=== PATIENT | female | born 1960 | race African-American/Black ===

== ENCOUNTER → 2020-09-01 | Outpatient (CLI) | payer MEDICARE, MEDICAID ==
[~2020-09-01] MED LIST: ACET-2708 PO; AMLO10TA80 PO; ASPI-1406 PO; B50 PO; BIOT1TAB8 PO; BISA-81 PO; CINA30 PO; DOCU-138 PO; FERR210T PO; FURO40TA5 PO; GARL600T2 PO; HYDR-4134 PO; HYDR-4135 PO; IRBE300T17 PO; LOSA50TA41 PO; SEVE800T8 PO
== END | disposition home or self-care (01) ==
LOC: LAB 13:32
PROVIDERS: ATTEND Surgery Vascular Surgery
DX: Z01.812 Encounter for preprocedural laboratory examination (principal); Z20.822 Contact with and (suspected) exposure to COVID-19
CPT/HCPCS: 87426

== ENCOUNTER → 2020-09-04 | Day surgery (SDC) | payer MEDICARE, MEDICAID ==
[~2020-09-04] VITALS: Ht 170.2 cm; Wt 102.5 kg
[~2020-09-04] MED LIST changes: +BACITRACIN 15GM TUBE TOP ONE; +BUPIVACAINE HCL/PF 0.5% (5MG/ML) 10ML ONE; +DEXAMETHASONE 4MG/ML 1ML VIAL ONE; +FENTANYL CITRATE/PF 50MCG/ML 2ML VIAL ONE; +HEPARIN SODIUM 1,000 UNIT/1ML VIAL IV ONE; +HYDROMORPHONE HCL/PF 2MG/ML CPJ IV PRN; +IBUPROFEN 400MG TABLET PO NR; +LIDOCAINE HCL 1% 20ML VIAL (Pyxis) INJ ONE; +LIDOCAINE HCL/EPINEPHRINE 1%-EPI 1:100,000 20 ML VIAL ONE; +MEPERIDINE HCL/PF 25MG/ML CPJ IV PRN; +METOCLOPRAMIDE HCL 10MG/2ML VIAL ONE; +MIDAZOLAM HCL 2 MG/2 ML VIAL ONE; +MORPHINE SULFATE 2 MG/ML CPJ (NOT FOR IM USE) IV PRN; +ONDANSETRON HCL 4MG/2ML INJ IV PRN; +ONDANSETRON HCL 4MG/2ML INJ ONE; +POLYMYXIN B SULFATE 500000 UNITS/VIAL ONE; +PROPOFOL 200MG/20ML VIAL IV ONE; +SODIUM CHLORIDE 0.9% 1,000 ML IV ONE; +SODIUM CHLORIDE 0.9% 500 ML IV ONE; +THROMBIN (BOVINE) 5000 UNITS/VIAL TOP ONE
[2020-09-04 06:45] LABS: BASOPHILS % 0.8 % (0.0-2.0); EOSINOPHILS % 3.7 % (0.0-5.0); HEMATOCRIT. 34.7 % (36.0-48.0); HEMOGLOBIN. 10.9 g/dL (12.0-16.0); LYMPHOCYTES % 21.5 % (20.0-50.0); MEAN CORPUSCULAR HEMOGLOBIN 28.5 pg (28.0-32.0); MEAN CORPUSCULAR VOLUME 90.6 fL (81.0-99.0); MONOCYTES % 8.7 % (2.0-8.0); NEUTROPHILS % 65.3 % (40.0-76.0); PLATELET 285 x1000/uL (130-400); RED BLOOD CELL COUNT 3.83 mill/uL (4.2-5.4); RED CELL DISTRIBUTION WIDTH 15.2 % (11.6-14.6)
[2020-09-04 07:06] LABS: INR 1.1; PROTHROMBIN TIME 11.6 sec (9.6-11.0)
[2020-09-04 10:32] VITALS: BP 146/78
== END | disposition home or self-care (01) ==
LOC: OR 05:54
PROVIDERS: ATTEND Surgery Vascular Surgery
DX: I77.0 Arteriovenous fistula, acquired (principal); E66.01 Morbid (severe) obesity due to excess calories; I12.0 Hypertensive chronic kidney disease with stage 5 chronic kidney disease or end stage renal disease; N18.6 End stage renal disease; E11.22 Type 2 diabetes mellitus with diabetic chronic kidney disease; Z79.82 Long term (current) use of aspirin; Z79.84 Long term (current) use of oral hypoglycemic drugs; Z79.899 Other long term (current) drug therapy; Z98.890 Other specified postprocedural states
CPT/HCPCS: 36415; 36818; 80048; 85025; 85610; 85730; 93005; J1100; J1644; J2250; J2405; J2704; J2765; J3010; J3490; J7040; A4565

== ENCOUNTER 2021-01-23 16:04 | Inpatient (IN) | payer MEDICARE, OTHER ==
[~2021-01-23] VITALS: Ht 170.2 cm; Wt 103.9 kg
[~2021-01-23 16:04] MED LIST changes: -ASPI-1406 PO; -B50 PO; -BACITRACIN 15GM TUBE TOP ONE; -BIOT1TAB8 PO; -BUPIVACAINE HCL/PF 0.5% (5MG/ML) 10ML ONE; -CINA30 PO; -DEXAMETHASONE 4MG/ML 1ML VIAL ONE; -DOCU-138 PO; -FENTANYL CITRATE/PF 50MCG/ML 2ML VIAL ONE; -GARL600T2 PO; -HEPARIN SODIUM 1,000 UNIT/1ML VIAL IV ONE; -HYDR-4134 PO; -HYDROMORPHONE HCL/PF 2MG/ML CPJ IV PRN; -IBUPROFEN 400MG TABLET PO NR; -LIDOCAINE HCL 1% 20ML VIAL (Pyxis) INJ ONE; -LIDOCAINE HCL/EPINEPHRINE 1%-EPI 1:100,000 20 ML VIAL ONE; -LOSA50TA41 PO; -MEPERIDINE HCL/PF 25MG/ML CPJ IV PRN; -METOCLOPRAMIDE HCL 10MG/2ML VIAL ONE; -MIDAZOLAM HCL 2 MG/2 ML VIAL ONE; -MORPHINE SULFATE 2 MG/ML CPJ (NOT FOR IM USE) IV PRN; -ONDANSETRON HCL 4MG/2ML INJ IV PRN; -ONDANSETRON HCL 4MG/2ML INJ ONE; -POLYMYXIN B SULFATE 500000 UNITS/VIAL ONE; -PROPOFOL 200MG/20ML VIAL IV ONE; -SEVE800T8 PO; -SODIUM CHLORIDE 0.9% 1,000 ML IV ONE; -SODIUM CHLORIDE 0.9% 500 ML IV ONE; -THROMBIN (BOVINE) 5000 UNITS/VIAL TOP ONE
[2021-01-23] MEDS ORDERED: SODIUM CHLORIDE 0.9% 500 ML IV ONE ×2 (16:45→17:30)
[2021-01-23] MEDS ORDERED: ACETAMINOPHEN 325MG TABLET PO ONE (16:45)
[2021-01-23 17:02] LABS: BASOPHILS % 0.7 % (0.0-2.0); HEMATOCRIT. 31.3 % (36.0-48.0); HEMOGLOBIN. 9.9 g/dL (12.0-16.0); LYMPHOCYTES % 10.3 % (20.0-50.0); MEAN CORPUSCULAR HEMOGLOBIN 29.3 pg (28.0-32.0); MEAN CORPUSCULAR VOLUME 92.9 fL (81.0-99.0); MEAN PLATELET VOLUME 8.9 fl (7.4-10.4); MONOCYTES % 4.5 % (2.0-8.0); NEUTROPHILS % 83.5 % (40.0-76.0); PLATELET 448 x1000/uL (130-400); RED BLOOD CELL COUNT 3.37 mill/uL (4.2-5.4); RED CELL DISTRIBUTION WIDTH 15.7 % (11.6-14.6)
[2021-01-23 17:08] LABS: CHLORIDE 100 mEq/L (98-107)
[2021-01-23] MEDS ORDERED: ASPIRIN 325MG EC TABLET PO ONE (18:45)
[2021-01-23] MEDS ORDERED: SODIUM CHLORIDE 0.9% 100 ML IV ONE (19:00)
[2021-01-23] MEDS ORDERED: CALCIUM GLUCONATE 100MG/ML 10ML VIAL IV ONE (19:00)
[2021-01-23] MEDS: AMLODIPINE 10MG TABLET PO SCH (22:30)
[2021-01-23] MEDS ORDERED: GUAIFENESIN 200MG/10ML SUGAR FREE UDC PO PRN (22:30)
[2021-01-23] MEDS ORDERED: CLONIDINE 0.1MG TABLET PO PRN (22:30)
[2021-01-23] MEDS ORDERED: ACETAMINOPHEN 650MG/20.3ML UDC GT PRN (22:30)
[2021-01-23] MEDS ORDERED: MAGNESIUM/ALUMINUM HYDROXIDE/SIMETHICONE 30ML UDC PO PRN (22:30)
[2021-01-24 05:31] VITALS: BP 162/66
[2021-01-24 08:00] VITALS: BP 116/95
[2021-01-24] MEDS: AMLODIPINE 10MG TABLET PO SCH (10:09)
[2021-01-24] MEDS: PANTOPRAZOLE SODIUM 40 MG/VIAL IV SCH (10:09)
[2021-01-24] MEDS: DIPHENHYDRAMINE 50MG/ML VIAL IV PRN (11:26)
[2021-01-24 12:00] VITALS: BP 148/55
[2021-01-24] MEDS ORDERED: HEPARIN SODIUM 1,000 UNIT/1ML VIAL IV NR ×2 (12:30→12:45)
[2021-01-24] MEDS ORDERED: DEXTROSE 50% WATER 50ML SYRINGE IV PRN (12:45)
[2021-01-24] MEDS: BLOOD SUGAR DIAGNOSTIC STRIP TEST SCH ×3 (12:50→20:48)
[2021-01-24] MEDS: INSULIN LISPRO 100 UNITS/ML SUBCUT SCH ×3 (12:51→20:49)
[2021-01-24 13:12] LABS: BASOPHILS % 0.9 % (0.0-2.0); EOSINOPHILS % 0.6 % (0.0-5.0); HEMATOCRIT. 28.2 % (36.0-48.0); HEMOGLOBIN. 9.1 g/dL (12.0-16.0); MEAN CORPUSCULAR HEMOGLOBIN 29.5 pg (28.0-32.0); MEAN CORPUSCULAR VOLUME 91.7 fL (81.0-99.0); MEAN PLATELET VOLUME 9.2 fl (7.4-10.4); MONOCYTES % 6.7 % (2.0-8.0); NEUTROPHILS % 83.8 % (40.0-76.0); PLATELET 401 x1000/uL (130-400); RED BLOOD CELL COUNT 3.08 mill/uL (4.2-5.4); RED CELL DISTRIBUTION WIDTH 15.7 % (11.6-14.6)
[2021-01-24] MEDS ORDERED: REGADENOSON 0.4 MG/5 ML IV NR (13:15)
[2021-01-24 13:17] LABS: CHLORIDE 101 mEq/L (98-107)
[2021-01-24 16:00] VITALS: BP 143/67
[2021-01-24] MEDS: ACETAMINOPHEN 325MG TABLET PO PRN (20:48)
[2021-01-24] MEDS ORDERED: ACETAMINOPHEN 650MG/20.3ML UDC PO PRN (22:30)
[2021-01-25] MEDS: BLOOD SUGAR DIAGNOSTIC STRIP TEST SCH ×4 (06:22→21:40)
[2021-01-25] MEDS: INSULIN LISPRO 100 UNITS/ML SUBCUT SCH ×4 (06:22→20:42)
[2021-01-25] MEDS: AMLODIPINE 10MG TABLET PO SCH (08:20)
[2021-01-25] MEDS: PANTOPRAZOLE SODIUM 40 MG/VIAL IV SCH (09:48)
[2021-01-25] MEDS ORDERED: REGADENOSON 0.4 MG/5 ML IV ONE (10:52)
[2021-01-25 12:00] VITALS: BP 128/92
[2021-01-25] MEDS: ONDANSETRON HCL 4MG/2ML INJ IV PRN (12:55)
[2021-01-25] MEDS: ACETAMINOPHEN 325MG TABLET PO PRN ×2 (12:55→20:11)
[2021-01-25 16:00] VITALS: BP 160/69
[2021-01-26] MEDS: ACETAMINOPHEN 325MG TABLET PO PRN ×2 (03:46→18:47)
[2021-01-26] MEDS: BLOOD SUGAR DIAGNOSTIC STRIP TEST SCH ×4 (05:43→19:56)
[2021-01-26] MEDS: DIPHENHYDRAMINE 50MG/ML VIAL IV PRN (05:43)
[2021-01-26] MEDS: INSULIN LISPRO 100 UNITS/ML SUBCUT SCH ×4 (07:07→19:58)
[2021-01-26 08:00] VITALS: BP 177/41
[2021-01-26] MEDS: PANTOPRAZOLE SODIUM 40 MG/VIAL IV SCH (09:39)
[2021-01-26] MEDS: METHADONE HCL 5MG TABLET PO PRN ×2 (09:41→20:03)
[2021-01-26] MEDS: AMLODIPINE 10MG TABLET PO SCH (09:42)
[2021-01-26 12:00] VITALS: BP 144/57
[2021-01-26] MEDS: ATORVASTATIN CALCIUM 40MG TABLET PO SCH (19:56)
[2021-01-26 20:00] VITALS: BP 115/44
[2021-01-26 21:05] LABS: HEMATOCRIT. 25.2 % (36.0-48.0); MEAN CORPUSCULAR HEMOGLOBIN 29.5 pg (28.0-32.0); MEAN PLATELET VOLUME 9.2 fl (7.4-10.4); PLATELET 343 x1000/uL (130-400); RED BLOOD CELL COUNT 2.71 mill/uL (4.2-5.4)
[2021-01-26 21:29] LABS: CHLORIDE 101 mEq/L (98-107)
[2021-01-26 21:46] LABS: PLATELET ESTIMATE NORMAL
[2021-01-27] VITALS: BP 121/38
[2021-01-27] MEDS: ONDANSETRON HCL 4MG/2ML INJ IV PRN ×2 (02:55→10:20)
[2021-01-27 04:00] VITALS: BP 137/59
[2021-01-27] MEDS: INSULIN LISPRO 100 UNITS/ML SUBCUT SCH ×4 (05:07→21:00)
[2021-01-27] MEDS: BLOOD SUGAR DIAGNOSTIC STRIP TEST SCH ×4 (05:07→21:36)
[2021-01-27 08:00] VITALS: BP_SYST 148; BP_SYST 160; BP_DIAS 65; BP_DIAS 70
[2021-01-27] MEDS: AMLODIPINE 10MG TABLET PO SCH (09:00)
[2021-01-27 10:02] LABS: HEMATOCRIT. 26.4 % (36.0-48.0); HEMOGLOBIN. 8.2 g/dL (12.0-16.0); MEAN CORPUSCULAR HEMOGLOBIN 29.1 pg (28.0-32.0); MEAN CORPUSCULAR VOLUME 94.1 fL (81.0-99.0); MEAN PLATELET VOLUME 9.2 fl (7.4-10.4); PLATELET 363 x1000/uL (130-400); RED BLOOD CELL COUNT 2.81 mill/uL (4.2-5.4); RED CELL DISTRIBUTION WIDTH 16.4 % (11.6-14.6)
[2021-01-27] MEDS: PANTOPRAZOLE SODIUM 40 MG/VIAL IV SCH (10:20)
[2021-01-27 11:47] LABS: HEPATITIS B SURFACE ANTIGEN NEGATIVE
[2021-01-27 12:00] VITALS: BP 160/70
[2021-01-27] MEDS ORDERED: MANNITOL 12.5G (25%) VIAL 50ML IV NR (12:00)
[2021-01-27 13:06] LABS: PLATELET ESTIMATE NORMAL
[2021-01-27] MEDS: METOCLOPRAMIDE HCL 10MG/2ML VIAL IV SCH ×2 (15:02→17:53)
[2021-01-27 16:00] VITALS: BP 111/77
[2021-01-27] MEDS: ACETAMINOPHEN 325MG TABLET PO PRN (17:53)
[2021-01-27 20:00] VITALS: BP 124/88
[2021-01-27] MEDS: ATORVASTATIN CALCIUM 40MG TABLET PO SCH (21:36)
[2021-01-28] VITALS: BP 151/59
[2021-01-28 04:00] VITALS: BP 176/59
[2021-01-28] MEDS: INSULIN LISPRO 100 UNITS/ML SUBCUT SCH ×4 (05:46→20:32)
[2021-01-28] MEDS: METOCLOPRAMIDE HCL 10MG/2ML VIAL IV SCH ×4 (05:46→18:00)
[2021-01-28] MEDS: BLOOD SUGAR DIAGNOSTIC STRIP TEST SCH ×4 (05:46→20:32)
[2021-01-28 08:00] VITALS: BP 105/44
[2021-01-28] MEDS: AMLODIPINE 10MG TABLET PO SCH (08:59)
[2021-01-28] MEDS: DOCUSATE SODIUM 100MG CAPSULE PO PRN (09:00)
[2021-01-28] MEDS: PANTOPRAZOLE SODIUM 40 MG/VIAL IV SCH (09:00)
[2021-01-28] MEDS: METOCLOPRAMIDE HCL 5MG TABLET PO PRN ×2 (11:38→18:31)
[2021-01-28 12:00] VITALS: BP 119/41
[2021-01-28 16:00] VITALS: BP 95/46
[2021-01-28 20:00] VITALS: BP 126/31
[2021-01-28] MEDS: ATORVASTATIN CALCIUM 40MG TABLET PO SCH (20:32)
[2021-01-28] MEDS ORDERED: SODIUM BICARBONATE 8.4% 1 MEQ/ML 50ML SYR IV NR (21:00)
[2021-01-28] MEDS ORDERED: INSULIN REGULAR (HUMULIN R) UD 100 UNITS/ML SYR IV NR (21:00)
[2021-01-28] MEDS ORDERED: DEXTROSE 50% WATER 50ML SYRINGE IV NR (21:00)
[2021-01-28] MEDS ORDERED: SODIUM POLYSTYRENE SULFONATE 15 G/60 ML BOT PO NR (21:00)
[2021-01-28] MEDS ORDERED: CALCIUM CHLORIDE 1,000 MG in DEXT 5% WATER 90 ML IV NR (21:00)
[2021-01-28 22:09] LABS: INR 1.3; PROTHROMBIN TIME 13.6 sec (9.6-11.0)
[2021-01-29] VITALS: BP 153/63
[2021-01-29 04:00] VITALS: BP 113/59
[2021-01-29] MEDS: METOCLOPRAMIDE HCL 10MG/2ML VIAL IV SCH ×4 (05:14→17:30)
[2021-01-29] MEDS: BLOOD SUGAR DIAGNOSTIC STRIP TEST SCH ×4 (06:34→21:00)
[2021-01-29] MEDS: INSULIN LISPRO 100 UNITS/ML SUBCUT SCH ×4 (06:34→21:00)
[2021-01-29 07:05] LABS: HEMATOCRIT. 27.2 % (36.0-48.0); MEAN CORPUSCULAR HEMOGLOBIN 28.8 pg (28.0-32.0); MEAN PLATELET VOLUME 9.6 fl (7.4-10.4); PLATELET 429 x1000/uL (130-400); RED BLOOD CELL COUNT 2.78 mill/uL (4.2-5.4); RED CELL DISTRIBUTION WIDTH 17.1 % (11.6-14.6)
[2021-01-29 08:00] VITALS: BP 110/51
[2021-01-29] MEDS: AMLODIPINE 10MG TABLET PO SCH (09:00)
[2021-01-29] MEDS: PANTOPRAZOLE SODIUM 40 MG/VIAL IV SCH (09:00)
[2021-01-29 10:10] LABS: NUCLEATED RED BLOOD CELLS 1 /100 WBC; PLATELET ESTIMATE INCREASED
[2021-01-29] MEDS ORDERED: DIGOXIN 500MCG/2ML AMP IV SCH ×2 (11:45→14:40)
[2021-01-29 12:00] VITALS: BP 122/68
[2021-01-29] MEDS: AMIODARONE HCL 200 MG TABLET PO SCH ×2 (12:33→21:00)
[2021-01-29 16:00] VITALS: BP 120/67
[2021-01-29 20:00] VITALS: BP 118/45
[2021-01-29] MEDS: ATORVASTATIN CALCIUM 40MG TABLET PO SCH (21:00)
[2021-01-30] VITALS: BP 125/62
[2021-01-30 04:00] VITALS: BP 122/57
[2021-01-30] MEDS: METOCLOPRAMIDE HCL 10MG/2ML VIAL IV SCH ×5 (05:22→23:25)
[2021-01-30] MEDS: BLOOD SUGAR DIAGNOSTIC STRIP TEST SCH ×4 (06:28→21:55)
[2021-01-30] MEDS: INSULIN LISPRO 100 UNITS/ML SUBCUT SCH ×4 (06:28→21:00)
[2021-01-30 06:42] LABS: HEMATOCRIT. 23.8 % (36.0-48.0); HEMOGLOBIN. 7.6 g/dL (12.0-16.0); MEAN CORPUSCULAR HEMOGLOBIN 29.3 pg (28.0-32.0); MEAN CORPUSCULAR VOLUME 91.7 fL (81.0-99.0); MEAN PLATELET VOLUME 9.6 fl (7.4-10.4); PLATELET 369 x1000/uL (130-400); RED BLOOD CELL COUNT 2.59 mill/uL (4.2-5.4); RED CELL DISTRIBUTION WIDTH 16.4 % (11.6-14.6)
[2021-01-30 06:50] LABS: CHLORIDE 103 mEq/L (98-107)
[2021-01-30 08:00] VITALS: BP 110/56
[2021-01-30] MEDS ORDERED: LEVOFLOXACIN 500MG TABLET PO SCH (08:46)
[2021-01-30] MEDS: AMLODIPINE 10MG TABLET PO SCH (09:00)
[2021-01-30] MEDS: AMIODARONE HCL 200 MG TABLET PO SCH ×3 (09:00→17:12)
[2021-01-30] MEDS: PANTOPRAZOLE SODIUM 40 MG/VIAL IV SCH (09:27)
[2021-01-30] MEDS: ACETAMINOPHEN 325MG TABLET PO PRN ×2 (09:28→21:44)
[2021-01-30] MEDS ORDERED: HEPARIN SODIUM 1,000 UNIT/1ML VIAL IV NR (10:30)
[2021-01-30] MEDS: DIPHENHYDRAMINE 50MG/ML VIAL IV PRN (10:53)
[2021-01-30 12:00] VITALS: BP 120/68
[2021-01-30] MEDS ORDERED: PARICALCITOL 5 MCG/ML 1ML IV NR (12:00)
[2021-01-30 16:00] VITALS: BP 100/50
[2021-01-30 16:35] LABS: PLATELET ESTIMATE NORMAL
[2021-01-30] MEDS ORDERED: DIGOXIN 250MCG TABLET PO ONE (18:45)
[2021-01-30] MEDS ORDERED: DIGOXIN 500MCG/2ML AMP IV NR (19:00)
[2021-01-30 20:00] VITALS: BP 126/58
[2021-01-30] MEDS ORDERED: EPOETIN ALFA-EPBX 10,000 UNIT/ML VIAL SUBCUT NR (21:00)
[2021-01-30] MEDS: ATORVASTATIN CALCIUM 40MG TABLET PO SCH (21:31)
[2021-01-31] VITALS (9 sets, daily range): BP systolic 105–144; BP diastolic 40–66
[2021-01-31] MEDS: AMIODARONE HCL 200 MG TABLET PO SCH ×5 (00:43→23:58)
[2021-01-31] MEDS: METOCLOPRAMIDE HCL 10MG/2ML VIAL IV SCH ×4 (05:28→23:58)
[2021-01-31] MEDS: BLOOD SUGAR DIAGNOSTIC STRIP TEST SCH ×4 (06:38→20:42)
[2021-01-31 06:45] LABS: HEMATOCRIT. 22.3 % (36.0-48.0); MEAN CORPUSCULAR HEMOGLOBIN 29.1 pg (28.0-32.0); MEAN CORPUSCULAR VOLUME 92.5 fL (81.0-99.0); MEAN PLATELET VOLUME 9.7 fl (7.4-10.4); PLATELET 289 x1000/uL (130-400); RED BLOOD CELL COUNT 2.42 mill/uL (4.2-5.4); RED CELL DISTRIBUTION WIDTH 16.1 % (11.6-14.6)
[2021-01-31] MEDS: INSULIN LISPRO 100 UNITS/ML SUBCUT SCH ×4 (07:27→20:43)
[2021-01-31] MEDS ORDERED: BISACODYL 10MG SUPP PR SCH (08:30)
[2021-01-31] MEDS: PANTOPRAZOLE SODIUM 40 MG/VIAL IV SCH (09:03)
[2021-01-31] MEDS: AMLODIPINE 10MG TABLET PO SCH (09:03)
[2021-01-31] MEDS: DOCUSATE SODIUM 100MG CAPSULE PO PRN ×2 (09:04→18:34)
[2021-01-31] MEDS ORDERED: VANCOMYCIN 1 G PREMIX 200 ML IV SCH (13:45)
[2021-01-31 14:27] LABS: PLATELET ESTIMATE NORMAL
[2021-01-31] MEDS ORDERED: VANCOMYCIN 1,750 MG in DEXT 5% WATER 500 ML IV SCH (16:00)
[2021-01-31 20:13] LABS: HEMATOCRIT. 24.8 % (36.0-48.0); HEMOGLOBIN. 7.9 g/dL (12.0-16.0); MEAN CORPUSCULAR HEMOGLOBIN 29.2 pg (28.0-32.0); MEAN CORPUSCULAR VOLUME 91.9 fL (81.0-99.0); MEAN PLATELET VOLUME 9.9 fl (7.4-10.4); PLATELET 305 x1000/uL (130-400); RED CELL DISTRIBUTION WIDTH 15.7 % (11.6-14.6)
[2021-01-31] MEDS: ATORVASTATIN CALCIUM 40MG TABLET PO SCH (20:43)
[2021-01-31 20:49] LABS: PLATELET ESTIMATE NORMAL
[2021-01-31] MEDS: ACETAMINOPHEN 325MG TABLET PO PRN (23:46)
[2021-02-01] VITALS (7 sets, daily range): BP systolic 83–153; BP diastolic 41–89
[2021-02-01] MEDS: AMIODARONE HCL 200 MG TABLET PO SCH ×3 (05:34→18:51)
[2021-02-01] MEDS: METOCLOPRAMIDE HCL 10MG/2ML VIAL IV SCH ×3 (05:34→18:55)
[2021-02-01] MEDS: BLOOD SUGAR DIAGNOSTIC STRIP TEST SCH ×4 (06:15→20:17)
[2021-02-01 06:55] LABS: HEMATOCRIT. 23.3 % (36.0-48.0); HEMOGLOBIN. 7.3 g/dL (12.0-16.0); MEAN CORPUSCULAR HEMOGLOBIN 29.2 pg (28.0-32.0); MEAN CORPUSCULAR VOLUME 92.8 fL (81.0-99.0); MEAN PLATELET VOLUME 10.1 fl (7.4-10.4); PLATELET 276 x1000/uL (130-400); RED BLOOD CELL COUNT 2.51 mill/uL (4.2-5.4); RED CELL DISTRIBUTION WIDTH 16.2 % (11.6-14.6)
[2021-02-01] MEDS: ACETAMINOPHEN 325MG TABLET PO PRN ×2 (07:10→21:29)
[2021-02-01] MEDS: INSULIN LISPRO 100 UNITS/ML SUBCUT SCH ×4 (07:14→20:17)
[2021-02-01] MEDS: AMLODIPINE 10MG TABLET PO SCH (09:00)
[2021-02-01] MEDS: LEVOFLOXACIN 250MG TABLET PO SCH (10:09)
[2021-02-01] MEDS: PANTOPRAZOLE SODIUM 40 MG/VIAL IV SCH (10:09)
[2021-02-01 13:11] LABS: PLATELET ESTIMATE NORMAL
[2021-02-01] MEDS ORDERED: VANCOMYCIN 750 MG PREMIX 150 ML IV NR (17:00)
[2021-02-01] MEDS: ATORVASTATIN CALCIUM 40MG TABLET PO SCH (20:16)
[2021-02-02] VITALS: BP 121/55
[2021-02-02] MEDS: METOCLOPRAMIDE HCL 10MG/2ML VIAL IV SCH ×5 (00:14→23:54)
[2021-02-02] MEDS: AMIODARONE HCL 200 MG TABLET PO SCH ×5 (00:15→23:54)
[2021-02-02] MEDS: ACETAMINOPHEN 325MG TABLET PO PRN (02:59)
[2021-02-02 04:00] VITALS: BP 135/55
[2021-02-02] MEDS: BLOOD SUGAR DIAGNOSTIC STRIP TEST SCH ×4 (07:10→20:07)
[2021-02-02] MEDS: INSULIN LISPRO 100 UNITS/ML SUBCUT SCH ×4 (07:40→20:52)
[2021-02-02] MEDS: DIPHENHYDRAMINE 50MG/ML VIAL IV PRN (07:52)
[2021-02-02 08:00] VITALS: BP 124/61
[2021-02-02 08:10] LABS: HEMATOCRIT. 23.4 % (36.0-48.0); HEMOGLOBIN. 7.3 g/dL (12.0-16.0); MEAN CORPUSCULAR HEMOGLOBIN 29.2 pg (28.0-32.0); MEAN CORPUSCULAR VOLUME 94.2 fL (81.0-99.0); MEAN PLATELET VOLUME 10.2 fl (7.4-10.4); PLATELET 233 x1000/uL (130-400); RED BLOOD CELL COUNT 2.48 mill/uL (4.2-5.4); RED CELL DISTRIBUTION WIDTH 15.9 % (11.6-14.6)
[2021-02-02] MEDS: PANTOPRAZOLE SODIUM 40 MG/VIAL IV SCH (11:21)
[2021-02-02] MEDS: AMLODIPINE 10MG TABLET PO SCH (11:22)
[2021-02-02 12:00] VITALS: BP 115/66
[2021-02-02 16:00] VITALS: BP 121/67
[2021-02-02 16:56] LABS: PLATELET ESTIMATE NORMAL
[2021-02-02 20:00] VITALS: BP 127/56
[2021-02-02] MEDS: ATORVASTATIN CALCIUM 40MG TABLET PO SCH (20:07)
[2021-02-02] MEDS: ZOLPIDEM TARTRATE 5MG TABLET PO PRN (22:04)
[2021-02-03] VITALS: BP 131/87
[2021-02-03 04:00] VITALS: BP 119/59
[2021-02-03] MEDS: METOCLOPRAMIDE HCL 10MG/2ML VIAL IV SCH ×4 (05:31→23:27)
[2021-02-03] MEDS: AMIODARONE HCL 200 MG TABLET PO SCH ×3 (05:31→18:13)
[2021-02-03] MEDS: BLOOD SUGAR DIAGNOSTIC STRIP TEST SCH ×4 (06:24→21:00)
[2021-02-03] MEDS: ACETAMINOPHEN 325MG TABLET PO PRN ×2 (06:24→18:12)
[2021-02-03] MEDS: INSULIN LISPRO 100 UNITS/ML SUBCUT SCH ×4 (07:40→21:00)
[2021-02-03 07:41] LABS: HEMATOCRIT. 23.1 % (36.0-48.0); HEMOGLOBIN. 7.2 g/dL (12.0-16.0); MEAN CORPUSCULAR HEMOGLOBIN 29.3 pg (28.0-32.0); MEAN CORPUSCULAR VOLUME 93.5 fL (81.0-99.0); MEAN PLATELET VOLUME 10.5 fl (7.4-10.4); PLATELET 234 x1000/uL (130-400); RED BLOOD CELL COUNT 2.47 mill/uL (4.2-5.4); RED CELL DISTRIBUTION WIDTH 15.7 % (11.6-14.6)
[2021-02-03 08:00] VITALS: BP 121/60
[2021-02-03] MEDS: LEVOFLOXACIN 250MG TABLET PO SCH (09:48)
[2021-02-03] MEDS: AMLODIPINE 10MG TABLET PO SCH (09:48)
[2021-02-03] MEDS: PANTOPRAZOLE SODIUM 40 MG/VIAL IV SCH (09:48)
[2021-02-03 12:00] VITALS: BP 118/79
[2021-02-03] MEDS: POTASSIUM CHLORIDE INJ 40 MEQ in DEXT 5% WATER 500 ML IV SCH ×2 (12:00→13:12)
[2021-02-03] MEDS: METOCLOPRAMIDE HCL 5MG TABLET PO PRN (13:11)
[2021-02-03 14:20] LABS: NUCLEATED RED BLOOD CELLS 1 /100 WBC
[2021-02-03 14:21] LABS: PLATELET ESTIMATE NORMAL
[2021-02-03 16:00] VITALS: BP 120/78
[2021-02-03] MEDS ORDERED: POTASSIUM CHLORIDE 20MEQ TABLET SR PO NR (16:00)
[2021-02-03 20:00] VITALS: BP 131/48
[2021-02-03] MEDS: ATORVASTATIN CALCIUM 40MG TABLET PO SCH (21:01)
[2021-02-03] MEDS: ZOLPIDEM TARTRATE 5MG TABLET PO PRN (22:22)
[2021-02-04] VITALS: BP 120/55
[2021-02-04] MEDS: ACETAMINOPHEN 325MG TABLET PO PRN ×2 (01:06→20:44)
[2021-02-04] MEDS: AMIODARONE HCL 200 MG TABLET PO SCH ×4 (01:06→18:28)
[2021-02-04 04:00] VITALS: BP 143/47
[2021-02-04] MEDS: METOCLOPRAMIDE HCL 10MG/2ML VIAL IV SCH ×3 (06:19→18:28)
[2021-02-04] MEDS: INSULIN LISPRO 100 UNITS/ML SUBCUT SCH ×4 (07:13→20:45)
[2021-02-04] MEDS: BLOOD SUGAR DIAGNOSTIC STRIP TEST SCH ×4 (07:13→20:44)
[2021-02-04 08:00] VITALS: BP 139/45
[2021-02-04] MEDS: PANTOPRAZOLE SODIUM 40 MG/VIAL IV SCH (09:23)
[2021-02-04] MEDS: AMLODIPINE 10MG TABLET PO SCH (09:23)
[2021-02-04] MEDS: DIPHENHYDRAMINE 50MG/ML VIAL IV PRN ×2 (11:31→18:28)
[2021-02-04 12:00] VITALS: BP 135/48
[2021-02-04 16:00] VITALS: BP 126/46
[2021-02-04 20:00] VITALS: BP 114/34
[2021-02-04] MEDS: ATORVASTATIN CALCIUM 40MG TABLET PO SCH (20:44)
[2021-02-04] MEDS: ZOLPIDEM TARTRATE 5MG TABLET PO PRN (20:44)
[2021-02-05] VITALS (9 sets, daily range): BP systolic 82–136; BP diastolic 24–72
[2021-02-05] MEDS: AMIODARONE HCL 200 MG TABLET PO SCH ×4 (00:27→12:25)
[2021-02-05] MEDS: METOCLOPRAMIDE HCL 10MG/2ML VIAL IV SCH ×5 (00:27→23:30)
[2021-02-05] MEDS: BLOOD SUGAR DIAGNOSTIC STRIP TEST SCH ×4 (06:20→21:00)
[2021-02-05 06:30] LABS: INR 1.2; PROTHROMBIN TIME 12.8 sec (9.6-11.0)
[2021-02-05 06:51] LABS: BASOPHILS % 0.2 % (0.0-2.0); EOSINOPHILS % 1.4 % (0.0-5.0); HEMATOCRIT. 22.4 % (36.0-48.0); HEMOGLOBIN. 7.1 g/dL (12.0-16.0); LYMPHOCYTES % 7.2 % (20.0-50.0); MEAN CORPUSCULAR HEMOGLOBIN 29.5 pg (28.0-32.0); MEAN CORPUSCULAR VOLUME 93.6 fL (81.0-99.0); MEAN PLATELET VOLUME 10.6 fl (7.4-10.4); MONOCYTES % 4.9 % (2.0-8.0); NEUTROPHILS % 86.3 % (40.0-76.0); PLATELET 227 x1000/uL (130-400); RED CELL DISTRIBUTION WIDTH 15.3 % (11.6-14.6)
[2021-02-05] MEDS: INSULIN LISPRO 100 UNITS/ML SUBCUT SCH ×4 (07:03→21:00)
[2021-02-05] MEDS ORDERED: LIDOCAINE HCL 1% 30ML VIAL (10MG/ML) ONE (08:37)
[2021-02-05] MEDS ORDERED: IOHEXOL-300 50 ML BOTTLE IV ONE (09:31)
[2021-02-05] MEDS: LEVOFLOXACIN 250MG TABLET PO SCH (10:35)
[2021-02-05] MEDS: PANTOPRAZOLE SODIUM 40 MG/VIAL IV SCH (10:35)
[2021-02-05] MEDS: AMLODIPINE 10MG TABLET PO SCH (10:36)
[2021-02-05] MEDS ORDERED: EPOETIN ALFA-EPBX 4,000 UNIT/ML VIAL SUBCUT SCH (21:00)
[2021-02-05] MEDS: ACETAMINOPHEN 325MG TABLET PO PRN (23:30)
[2021-02-05] MEDS: ATORVASTATIN CALCIUM 40MG TABLET PO SCH (23:30)
[2021-02-06 02:58] VITALS: BP 132/48
[2021-02-06 03:41] VITALS: BP 85/42
[2021-02-06] MEDS: BLOOD SUGAR DIAGNOSTIC STRIP TEST SCH ×2 (06:02→12:10)
[2021-02-06] MEDS: INSULIN LISPRO 100 UNITS/ML SUBCUT SCH ×3 (06:03→13:00)
[2021-02-06] MEDS: ACETAMINOPHEN 325MG TABLET PO PRN (06:36)
[2021-02-06] MEDS: METOCLOPRAMIDE HCL 10MG/2ML VIAL IV SCH (06:37)
[2021-02-06 07:08] LABS: HEMATOCRIT. 23.1 % (36.0-48.0); HEMOGLOBIN. 7.2 g/dL (12.0-16.0); MEAN CORPUSCULAR HEMOGLOBIN 29.6 pg (28.0-32.0); MEAN CORPUSCULAR VOLUME 94.9 fL (81.0-99.0); MEAN PLATELET VOLUME 10.4 fl (7.4-10.4); PLATELET 234 x1000/uL (130-400); RED BLOOD CELL COUNT 2.43 mill/uL (4.2-5.4); RED CELL DISTRIBUTION WIDTH 15.3 % (11.6-14.6)
[2021-02-06 07:57] LABS: FOLIC ACID (FOLATE) SERUM 5.4 ng/mL (>5.38)
[2021-02-06 08:00] VITALS: BP 121/55
[2021-02-06] MEDS ORDERED: AMIODARONE HCL 200 MG TABLET PO SCH (09:00)
[2021-02-06] MEDS: DOCUSATE SODIUM 100MG CAPSULE PO PRN (09:22)
[2021-02-06] MEDS: PANTOPRAZOLE SODIUM 40 MG/VIAL IV SCH (09:23)
[2021-02-06] MEDS: AMLODIPINE 10MG TABLET PO SCH (09:23)
[2021-02-06 12:00] VITALS: BP 119/60
[2021-02-06 15:46] VITALS: BP 120/70
[2021-02-06 19:41] LABS: PLATELET ESTIMATE NORMAL
== END 2021-02-06 17:45 | disposition home health service (06) | DRG 438 ==
LOC: ER 16:04 → 8WST 19:28 → ENRESERV 01-24 03:33
PROVIDERS: ADMIT Hospitalist; ATTEND Hospitalist
PROC: 5A1D70Z Performance of Urinary Filtration, Intermittent, Less than 6 Hours Per Day (ICD-10-PCS; 2021-01-24)
PROC: 5A1D70Z Performance of Urinary Filtration, Intermittent, Less than 6 Hours Per Day (ICD-10-PCS; 2021-01-25)
PROC: B54NZZA Ultrasonography of Left Upper Extremity Veins, Guidance (ICD-10-PCS; 2021-01-25)
PROC: 05HY33Z Insertion of Infusion Device into Upper Vein, Percutaneous Approach (ICD-10-PCS; 2021-01-25)
PROC: 5A1D70Z Performance of Urinary Filtration, Intermittent, Less than 6 Hours Per Day (ICD-10-PCS; 2021-01-27)
PROC: 5A1D70Z Performance of Urinary Filtration, Intermittent, Less than 6 Hours Per Day (ICD-10-PCS; 2021-01-28)
PROC: 5A1D70Z Performance of Urinary Filtration, Intermittent, Less than 6 Hours Per Day (ICD-10-PCS; 2021-01-29)
PROC: 02HV33Z Insertion of Infusion Device into Superior Vena Cava, Percutaneous Approach (ICD-10-PCS; 2021-01-29)
PROC: B548ZZA Ultrasonography of Superior Vena Cava, Guidance (ICD-10-PCS; 2021-01-29)
PROC: 5A1D70Z Performance of Urinary Filtration, Intermittent, Less than 6 Hours Per Day (ICD-10-PCS; 2021-01-30)
PROC: 30233N1 Transfusion of Nonautologous Red Blood Cells into Peripheral Vein, Percutaneous Approach (ICD-10-PCS; principal; 2021-01-31)
PROC: 5A1D70Z Performance of Urinary Filtration, Intermittent, Less than 6 Hours Per Day (ICD-10-PCS; 2021-02-01)
PROC: 5A1D70Z Performance of Urinary Filtration, Intermittent, Less than 6 Hours Per Day (ICD-10-PCS; 2021-02-02)
PROC: 5A1D70Z Performance of Urinary Filtration, Intermittent, Less than 6 Hours Per Day (ICD-10-PCS; 2021-02-05)
PROC: 02HV33Z Insertion of Infusion Device into Superior Vena Cava, Percutaneous Approach (ICD-10-PCS; 2021-02-05)
PROC: B548ZZA Ultrasonography of Superior Vena Cava, Guidance (ICD-10-PCS; 2021-02-05)
PROC: B5181ZA Fluoroscopy of Superior Vena Cava using Low Osmolar Contrast, Guidance (ICD-10-PCS; 2021-02-05)
DX: K85.90 Acute pancreatitis without necrosis or infection, unspecified (principal); A41.1 Sepsis due to other specified staphylococcus; I50.33 Acute on chronic diastolic (congestive) heart failure; N18.6 End stage renal disease; E44.1 Mild protein-calorie malnutrition; E87.1 Hypo-osmolality and hyponatremia; I13.2 Hypertensive heart and chronic kidney disease with heart failure and with stage 5 chronic kidney disease, or end stage renal disease; I47.1 Supraventricular tachycardia; T82.818A Embolism due to vascular prosthetic devices, implants and grafts, initial encounter; D62 Acute posthemorrhagic anemia; K57.32 Diverticulitis of large intestine without perforation or abscess without bleeding; E73.9 Lactose intolerance, unspecified; D63.1 Anemia in chronic kidney disease; E87.5 Hyperkalemia; F41.9 Anxiety disorder, unspecified; G43.909 Migraine, unspecified, not intractable, without status migrainosus; K59.00 Constipation, unspecified; M10.9 Gout, unspecified; M48.061 Spinal stenosis, lumbar region without neurogenic claudication; M13.842 Other specified arthritis, left hand; M13.841 Other specified arthritis, right hand; E66.01 Morbid (severe) obesity due to excess calories; G89.29 Other chronic pain; I48.0 Paroxysmal atrial fibrillation; Z60.2 Problems related to living alone; E10.22 Type 1 diabetes mellitus with diabetic chronic kidney disease; E10.51 Type 1 diabetes mellitus with diabetic peripheral angiopathy without gangrene; Y92.238 Other place in hospital as the place of occurrence of the external cause; Z20.822 Contact with and (suspected) exposure to COVID-19; Y83.2 Surgical operation with anastomosis, bypass or graft as the cause of abnormal reaction of the patient, or of later complication, without mention of misadventure at the time of the procedure; M51.9 Unspecified thoracic, thoracolumbar and lumbosacral intervertebral disc disorder; Z82.49 Family history of ischemic heart disease and other diseases of the circulatory system; Z83.3 Family history of diabetes mellitus; Z86.73 Personal history of transient ischemic attack (TIA), and cerebral infarction without residual deficits; Z99.2 Dependence on renal dialysis; Z79.4 Long term (current) use of insulin; Z68.35 Body mass index [BMI] 35.0-35.9, adult; Z79.899 Other long term (current) drug therapy
CPT/HCPCS: 36415; 36556; 71045; 74176; 76700; 76937; 77001; 78452; 80048; 80053; 80076; 82150; 82270; 82550; 82607; 82728; 82746; 82962; 83036; 83540; 83550; 83735; 83880; 84443; 84484; 84520; 85025; 85044; 86705; 86709; 86803; 86850; 86900; 86920; 87015; 87045; 87340; 87426; 87427; 87449; 93005; 93017; 97116; 97162; 97530; 99285; A9500; C1725; C1752; C1769; C1887; C9113; J0610; J0885; J1160; J1200; J1642; J1644; J1815; J2150; J2405; J2501; J2765; J2785; J3370; J3480; J3490; J7040; J7050; J7060; J8597; L8514; P9016; Q9967

== ENCOUNTER 2021-02-08 09:49 | Emergency (ER) | payer MEDICARE, OTHER ==
[~2021-02-08] VITALS: Ht 162.6 cm; Wt 118.0 kg
[2021-02-08] MEDS ORDERED: ONDANSETRON HCL 4MG/2ML INJ IV STA (10:27)
[2021-02-08] MEDS ORDERED: MORPHINE SULFATE 4 MG/ML CPJ (NOT FOR IM USE) IV STA (10:27)
[2021-02-08] MEDS ORDERED: MORPHINE SULFATE 2 MG/ML CPJ (NOT FOR IM USE) IV NR (11:00)
[2021-02-08 11:29] LABS: HEMATOCRIT. 25.7 % (36.0-48.0); HEMOGLOBIN. 8.1 g/dL (12.0-16.0); MEAN CORPUSCULAR HEMOGLOBIN 29.5 pg (28.0-32.0); MEAN CORPUSCULAR VOLUME 94.1 fL (81.0-99.0); MEAN PLATELET VOLUME 10.3 fl (7.4-10.4); PLATELET 254 x1000/uL (130-400); RED BLOOD CELL COUNT 2.73 mill/uL (4.2-5.4); RED CELL DISTRIBUTION WIDTH 15.5 % (11.6-14.6)
[2021-02-08 11:36] LABS: CHLORIDE 101 mEq/L (98-107)
[2021-02-08 13:04] LABS: PLATELET ESTIMATE NORMAL
[2021-02-08] MEDS ORDERED: T3 PO (13:20)
[2021-02-08 14:25] VITALS: BP 121/51
== END 2021-02-08 14:38 | disposition home or self-care (01) ==
LOC: ER 10:02
DX: R10.9 Unspecified abdominal pain (principal); I12.0 Hypertensive chronic kidney disease with stage 5 chronic kidney disease or end stage renal disease; E11.22 Type 2 diabetes mellitus with diabetic chronic kidney disease; N18.6 End stage renal disease; Z99.2 Dependence on renal dialysis; Z79.899 Other long term (current) drug therapy; Z86.73 Personal history of transient ischemic attack (TIA), and cerebral infarction without residual deficits; I48.91 Unspecified atrial fibrillation
CPT/HCPCS: 36415; 71045; 74176; 80053; 85025; 93005; 96374; 96375; 99285; J2270; J2405

== ENCOUNTER 2021-02-10 09:48 | Inpatient (IN) | payer MEDICARE, OTHER ==
[~2021-02-10] VITALS: Ht 170.2 cm; Wt 104.8 kg
[~2021-02-10 09:48] MED LIST changes: +T3 PO
[2021-02-10 11:11] LABS: HEMATOCRIT. 29.7 % (36.0-48.0); HEMOGLOBIN. 9.1 g/dL (12.0-16.0); MEAN CORPUSCULAR HEMOGLOBIN 29.4 pg (28.0-32.0); MEAN CORPUSCULAR VOLUME 95.6 fL (81.0-99.0); MEAN PLATELET VOLUME 10.1 fl (7.4-10.4); PLATELET 324 x1000/uL (130-400)
[2021-02-10 11:22] LABS: CHLORIDE 100 mEq/L (98-107)
[2021-02-10 11:51] LABS: PLATELET ESTIMATE NORMAL
[2021-02-10] MEDS ORDERED: DEXTROSE 50% WATER 50ML SYRINGE IV ONE (12:00)
[2021-02-10] MEDS ORDERED: INSULIN REGULAR (HUMULIN R) 300UNITS/3ML VIAL IV ONE (12:00)
[2021-02-10] MEDS ORDERED: ACETAMINOPHEN 325MG TABLET PO ONE (12:15)
[2021-02-10] MEDS ORDERED: ASPIRIN 325MG EC TABLET PO ONE (12:15)
[2021-02-10] MEDS ORDERED: CLONIDINE 0.1MG TABLET PO PRN (14:00)
[2021-02-10] MEDS ORDERED: IPRATROPIUM/ALBUTEROL 0.5-3(2.5)MG/3ML NEB HHN PRN (14:00)
[2021-02-10] MEDS: MORPHINE SULFATE 2 MG/ML CPJ (NOT FOR IM USE) IV PRN (17:28)
[2021-02-10 20:35] VITALS: BP 88/22
[2021-02-10 22:00] VITALS: BP 88/22
[2021-02-11] VITALS (13 sets, daily range): BP systolic 78–114; BP diastolic 38–66
[2021-02-11] MEDS: ACETAMINOPHEN 325MG TABLET PO PRN ×2 (02:30→22:21)
[2021-02-11 07:19] LABS: CHLORIDE 102 mEq/L (98-107)
[2021-02-11 07:42] LABS: LDL CHOLESTEROL 31 mg/dL (5-100)
[2021-02-11 07:44] LABS: HDL CHOLESTEROL 41 mg/dL (40-59); HEMATOCRIT. 22.4 % (36.0-48.0); MEAN CORPUSCULAR HEMOGLOBIN 28.7 pg (28.0-32.0); MEAN CORPUSCULAR VOLUME 94.3 fL (81.0-99.0); MEAN PLATELET VOLUME 10.1 fl (7.4-10.4); PLATELET 270 x1000/uL (130-400); RED BLOOD CELL COUNT 2.37 mill/uL (4.2-5.4)
[2021-02-11 08:07] LABS: HEMOGLOBIN. 6.8 g/dL (12.0-16.0)
[2021-02-11] MEDS: MORPHINE SULFATE 2 MG/ML CPJ (NOT FOR IM USE) IV PRN (08:47)
[2021-02-11 08:49] LABS: T4 FREE 1.18 ng/dL (0.76-1.46)
[2021-02-11 19:30] LABS: HEMATOCRIT. 24.1 % (36.0-48.0); HEMOGLOBIN. 7.6 g/dL (12.0-16.0); MEAN CORPUSCULAR HEMOGLOBIN 29.2 pg (28.0-32.0); MEAN CORPUSCULAR VOLUME 92.9 fL (81.0-99.0); MEAN PLATELET VOLUME 9.9 fl (7.4-10.4); PLATELET 256 x1000/uL (130-400); RED BLOOD CELL COUNT 2.59 mill/uL (4.2-5.4); RED CELL DISTRIBUTION WIDTH 15.6 % (11.6-14.6)
[2021-02-11 19:39] LABS: INR 1.4; PROTHROMBIN TIME 14.4 sec (9.6-11.0)
[2021-02-11 19:43] LABS: CREATINE KINASE MB FRACTION 5.4 ng/mL (0.5-3.6)
[2021-02-11 23:19] LABS: PLATELET ESTIMATE NORMAL
[2021-02-12] VITALS: BP 83/57
[2021-02-12 02:30] LABS: HEMOGLOBIN 7.4 g/dL (12.0-16.0)
[2021-02-12 02:51] LABS: CREATINE KINASE MB FRACTION 5.6 ng/mL (0.5-3.6)
[2021-02-12] MEDS: ACETAMINOPHEN 325MG TABLET PO PRN ×3 (03:55→15:49)
[2021-02-12 04:00] VITALS: BP 122/38
[2021-02-12 07:18] LABS: PLATELET ESTIMATE NORMAL
[2021-02-12 08:07] VITALS: BP 90/29
[2021-02-12 11:46] VITALS: BP 98/24
[2021-02-12] MEDS: FOLIC ACID/VITAMIN B COMP W-C TABLET PO SCH (15:49)
[2021-02-12 16:18] VITALS: BP 105/32
[2021-02-12] MEDS: MIDODRINE HCL 5MG TABLET PO SCH (17:54)
[2021-02-12 17:55] LABS: CLARITY URINE CLOUDY (CLEAR); COLOR URINE YELLOW (YELLOW); KETONES URINE NEGATIVE (NEGATIVE); LEUKOCYTE ESTERASE URINE 2+ (NEGATIVE); NITRITE URINE NEGATIVE (NEGATIVE); OCCULT BLOOD URINE 2+ (NEGATIVE); PROTEIN URINE 2+ (NEGATIVE); SPECIFIC GRAVITY URINE 1.018 (1.005-1.030); UROBILINOGEN URINE 0.2 E.U./dL (0.2-1.0)
[2021-02-12 20:00] VITALS: BP 112/50
[2021-02-12] MEDS: MORPHINE SULFATE 2 MG/ML CPJ (NOT FOR IM USE) IV PRN (21:55)
[2021-02-13] VITALS: BP 102/42
[2021-02-13] MEDS: ACETAMINOPHEN 325MG TABLET PO PRN (02:37)
[2021-02-13 04:00] VITALS: BP 107/50
[2021-02-13] MEDS: MORPHINE SULFATE 2 MG/ML CPJ (NOT FOR IM USE) IV PRN ×3 (04:47→22:49)
[2021-02-13 06:48] LABS: HEMATOCRIT. 23.1 % (36.0-48.0); HEMOGLOBIN. 7.2 g/dL (12.0-16.0); MEAN CORPUSCULAR HEMOGLOBIN 29.1 pg (28.0-32.0); MEAN CORPUSCULAR VOLUME 93.3 fL (81.0-99.0); MEAN PLATELET VOLUME 10.2 fl (7.4-10.4); PLATELET 243 x1000/uL (130-400); RED BLOOD CELL COUNT 2.47 mill/uL (4.2-5.4); RED CELL DISTRIBUTION WIDTH 15.7 % (11.6-14.6)
[2021-02-13] MEDS ORDERED: SODIUM BICARBONATE 8.4% 1 MEQ/ML 50ML SYR IV NR (08:12)
[2021-02-13 08:13] VITALS: BP 133/29
[2021-02-13] MEDS: MIDODRINE HCL 5MG TABLET PO SCH ×3 (09:12→16:17)
[2021-02-13] MEDS: FOLIC ACID/VITAMIN B COMP W-C TABLET PO SCH (09:12)
[2021-02-13] MEDS ORDERED: DEXTROSE 50% WATER 50ML SYRINGE IV NR (09:30)
[2021-02-13] MEDS ORDERED: INSULIN REGULAR (HUMULIN R) UD 100 UNITS/ML SYR IV NR (09:30)
[2021-02-13 12:39] VITALS: BP 106/32
[2021-02-13 16:22] VITALS: BP 107/30
[2021-02-13 19:14] LABS: PLATELET ESTIMATE NORMAL
[2021-02-13] MEDS ORDERED: CEFEPIME 2,000 MG in DEXT 5% WATER 100 ML IV SCH (19:30)
[2021-02-13 20:00] VITALS: BP 143/118
[2021-02-13] MEDS ORDERED: VANCOMYCIN 2,000 MG in DEXT 5% WATER 500 ML IV NR (21:00)
[2021-02-13] MEDS: CEFEPIME 1,000 MG in DEXTROSE 5% WATER 50 ML IV SCH (22:49)
[2021-02-13] MEDS: EPOETIN ALFA-EPBX 4,000 UNIT/ML VIAL SUBCUT SCH (22:50)
[2021-02-14] VITALS (7 sets, daily range): BP systolic 93–148; BP diastolic 18–51
[2021-02-14] MEDS: ACETAMINOPHEN 325MG TABLET PO PRN ×2 (04:41→18:13)
[2021-02-14] MEDS: MIDODRINE HCL 5MG TABLET PO SCH ×3 (08:35→17:23)
[2021-02-14] MEDS: FOLIC ACID/VITAMIN B COMP W-C TABLET PO SCH (08:35)
[2021-02-14] MEDS: ONDANSETRON HCL 4MG/2ML INJ IV PRN (08:44)
[2021-02-14] MEDS: MORPHINE SULFATE 2 MG/ML CPJ (NOT FOR IM USE) IV PRN ×2 (13:57→20:58)
[2021-02-14] MEDS: DOCUSATE SODIUM 250MG CAPSULE PO SCH (17:23)
[2021-02-14] MEDS: CEFEPIME 1,000 MG in DEXTROSE 5% WATER 50 ML IV SCH (20:40)
[2021-02-14] MEDS ORDERED: NALOXONE HCL 0.4MG/ML VIAL IV PRN (22:15)
[2021-02-15] VITALS: BP 104/41
[2021-02-15] MEDS: ACETAMINOPHEN 325MG TABLET PO PRN ×5 (03:38→23:07)
[2021-02-15 04:00] VITALS: BP 110/30
[2021-02-15 08:00] VITALS: BP 104/28
[2021-02-15] MEDS: DOCUSATE SODIUM 250MG CAPSULE PO SCH ×2 (09:00→17:00)
[2021-02-15] MEDS: MIDODRINE HCL 5MG TABLET PO SCH ×3 (09:34→17:46)
[2021-02-15] MEDS: FOLIC ACID/VITAMIN B COMP W-C TABLET PO SCH (09:34)
[2021-02-15] MEDS: ONDANSETRON HCL 4MG/2ML INJ IV PRN ×2 (09:34→13:46)
[2021-02-15 09:57] LABS: BASOPHILS % 0.9 % (0.0-2.0); EOSINOPHILS % 0.8 % (0.0-5.0); HEMATOCRIT. 24.9 % (36.0-48.0); HEMOGLOBIN. 7.8 g/dL (12.0-16.0); LYMPHOCYTES % 7.8 % (20.0-50.0); MEAN CORPUSCULAR HEMOGLOBIN 29.2 pg (28.0-32.0); MEAN CORPUSCULAR VOLUME 93.2 fL (81.0-99.0); MEAN PLATELET VOLUME 9.7 fl (7.4-10.4); MONOCYTES % 8.1 % (2.0-8.0); NEUTROPHILS % 82.4 % (40.0-76.0); PLATELET 291 x1000/uL (130-400); RED BLOOD CELL COUNT 2.67 mill/uL (4.2-5.4); RED CELL DISTRIBUTION WIDTH 15.9 % (11.6-14.6)
[2021-02-15] MEDS: PANTOPRAZOLE SODIUM 40 MG/VIAL IV SCH (11:09)
[2021-02-15 12:00] VITALS: BP 115/76
[2021-02-15 16:00] VITALS: BP 94/31
[2021-02-15 20:00] VITALS: BP 117/32
[2021-02-15] MEDS ORDERED: ALTEPLASE 2MG/VIAL ITC NR (22:00)
[2021-02-15] MEDS: EPOETIN ALFA-EPBX 4,000 UNIT/ML VIAL SUBCUT SCH (23:06)
[2021-02-15] MEDS: CEFEPIME 1,000 MG in DEXTROSE 5% WATER 50 ML IV SCH (23:06)
[2021-02-16] VITALS (8 sets, daily range): BP systolic 86–111; BP diastolic 17–75
[2021-02-16 02:47] LABS: HEPATITIS B SURFACE ANTIGEN NEGATIVE
[2021-02-16] MEDS: ACETAMINOPHEN 325MG TABLET PO PRN ×4 (03:50→21:02)
[2021-02-16] MEDS: ONDANSETRON HCL 4MG/2ML INJ IV PRN (07:03)
[2021-02-16 08:58] LABS: HEMATOCRIT. 24.4 % (36.0-48.0); HEMOGLOBIN. 7.6 g/dL (12.0-16.0); MEAN PLATELET VOLUME 9.8 fl (7.4-10.4); PLATELET 271 x1000/uL (130-400); RED BLOOD CELL COUNT 2.62 mill/uL (4.2-5.4); RED CELL DISTRIBUTION WIDTH 15.9 % (11.6-14.6)
[2021-02-16] MEDS: DOCUSATE SODIUM 250MG CAPSULE PO SCH ×2 (09:00→16:55)
[2021-02-16] MEDS: MIDODRINE HCL 5MG TABLET PO SCH ×3 (10:09→17:21)
[2021-02-16] MEDS: FOLIC ACID/VITAMIN B COMP W-C TABLET PO SCH (10:09)
[2021-02-16] MEDS: PANTOPRAZOLE SODIUM 40 MG/VIAL IV SCH (10:09)
[2021-02-16] MEDS: CEFEPIME 1,000 MG in DEXTROSE 5% WATER 50 ML IV SCH (21:02)
[2021-02-17] VITALS (7 sets, daily range): BP systolic 98–112; BP diastolic 29–77
[2021-02-17] MEDS: ACETAMINOPHEN 325MG TABLET PO PRN ×5 (01:04→17:40)
[2021-02-17 05:47] LABS: BASOPHILS % 0.5 % (0.0-2.0); EOSINOPHILS % 1.2 % (0.0-5.0); HEMATOCRIT. 25.9 % (36.0-48.0); HEMOGLOBIN. 8.1 g/dL (12.0-16.0); MEAN CORPUSCULAR HEMOGLOBIN 29.1 pg (28.0-32.0); MONOCYTES % 9.1 % (2.0-8.0); NEUTROPHILS % 79.2 % (40.0-76.0); PLATELET 263 x1000/uL (130-400); RED BLOOD CELL COUNT 2.79 mill/uL (4.2-5.4); RED CELL DISTRIBUTION WIDTH 15.5 % (11.6-14.6)
[2021-02-17] MEDS: DOCUSATE SODIUM 250MG CAPSULE PO SCH ×2 (09:00→17:00)
[2021-02-17] MEDS: FOLIC ACID/VITAMIN B COMP W-C TABLET PO SCH (11:31)
[2021-02-17] MEDS: MIDODRINE HCL 5MG TABLET PO SCH ×3 (11:32→17:39)
[2021-02-17] MEDS: PANTOPRAZOLE SODIUM 40 MG/VIAL IV SCH (11:33)
[2021-02-17 14:43] LABS: NUCLEATED RED BLOOD CELLS 1 /100 WBC
[2021-02-17 14:44] LABS: PLATELET ESTIMATE NORMAL
[2021-02-17] MEDS: HYDROCODONE/ACETAMINOPHEN 5/325MG TABLET PO PRN (17:40)
[2021-02-17] MEDS: EPOETIN ALFA-EPBX 4,000 UNIT/ML VIAL SUBCUT SCH (21:11)
[2021-02-17] MEDS: CEFEPIME 1,000 MG in DEXTROSE 5% WATER 50 ML IV SCH (21:11)
[2021-02-18] VITALS: BP 97/15
[2021-02-18] MEDS: ACETAMINOPHEN 325MG TABLET PO PRN ×2 (00:09→03:12)
[2021-02-18] MEDS: ONDANSETRON HCL 4MG/2ML INJ IV PRN ×2 (01:37→12:46)
[2021-02-18 04:00] VITALS: BP 95/22
[2021-02-18 05:52] LABS: BASOPHILS % 0.6 % (0.0-2.0); EOSINOPHILS % 0.8 % (0.0-5.0); HEMATOCRIT. 24.2 % (36.0-48.0); HEMOGLOBIN. 7.6 g/dL (12.0-16.0); LYMPHOCYTES % 7.6 % (20.0-50.0); MEAN CORPUSCULAR HEMOGLOBIN 29.3 pg (28.0-32.0); MEAN CORPUSCULAR VOLUME 93.1 fL (81.0-99.0); MEAN PLATELET VOLUME 9.7 fl (7.4-10.4); MONOCYTES % 7.5 % (2.0-8.0); NEUTROPHILS % 83.5 % (40.0-76.0); PLATELET 259 x1000/uL (130-400); RED BLOOD CELL COUNT 2.59 mill/uL (4.2-5.4); RED CELL DISTRIBUTION WIDTH 16.2 % (11.6-14.6)
[2021-02-18 08:00] VITALS: BP 111/30
[2021-02-18] MEDS: DOCUSATE SODIUM 250MG CAPSULE PO SCH ×2 (08:57→17:10)
[2021-02-18] MEDS: PANTOPRAZOLE SODIUM 40 MG/VIAL IV SCH (08:57)
[2021-02-18] MEDS: FOLIC ACID/VITAMIN B COMP W-C TABLET PO SCH (08:58)
[2021-02-18] MEDS: MIDODRINE HCL 5MG TABLET PO SCH ×3 (09:01→17:12)
[2021-02-18] MEDS: HYDROCODONE/ACETAMINOPHEN 5/325MG TABLET PO PRN (09:12)
[2021-02-18 12:00] VITALS: BP 106/53
[2021-02-18 16:00] VITALS: BP 104/34
[2021-02-18 20:00] VITALS: BP 90/39
[2021-02-19] VITALS: BP 134/41
[2021-02-19 04:00] VITALS: BP 110/35
[2021-02-19 06:42] LABS: BASOPHILS % 0.5 % (0.0-2.0); EOSINOPHILS % 0.9 % (0.0-5.0); HEMATOCRIT. 24.3 % (36.0-48.0); HEMOGLOBIN. 7.5 g/dL (12.0-16.0); LYMPHOCYTES % 9.5 % (20.0-50.0); MEAN CORPUSCULAR HEMOGLOBIN 28.9 pg (28.0-32.0); MEAN CORPUSCULAR VOLUME 94.1 fL (81.0-99.0); MEAN PLATELET VOLUME 9.7 fl (7.4-10.4); MONOCYTES % 7.8 % (2.0-8.0); NEUTROPHILS % 81.3 % (40.0-76.0); PLATELET 262 x1000/uL (130-400); RED BLOOD CELL COUNT 2.58 mill/uL (4.2-5.4); RED CELL DISTRIBUTION WIDTH 16.3 % (11.6-14.6)
[2021-02-19 08:00] VITALS: BP 106/35
[2021-02-19] MEDS: MIDODRINE HCL 5MG TABLET PO SCH ×3 (08:51→17:56)
[2021-02-19] MEDS: DOCUSATE SODIUM 250MG CAPSULE PO SCH ×2 (08:51→17:56)
[2021-02-19] MEDS: FOLIC ACID/VITAMIN B COMP W-C TABLET PO SCH (08:51)
[2021-02-19] MEDS: PANTOPRAZOLE SODIUM 40 MG/VIAL IV SCH (08:51)
[2021-02-19] MEDS: HYDROCODONE/ACETAMINOPHEN 5/325MG TABLET PO PRN ×3 (08:52→20:51)
[2021-02-19 12:00] VITALS: BP 97/45
[2021-02-19 13:09] LABS: ANTI-DNA DOUBLE STRANDED QUANT < 1 IU/mL (0-9)
[2021-02-19 16:00] VITALS: BP 103/51
[2021-02-19 20:14] VITALS: BP 96/33
[2021-02-20] VITALS: BP 96/30
[2021-02-20] MEDS: ACETAMINOPHEN 325MG TABLET PO PRN ×2 (00:27→21:33)
[2021-02-20] MEDS: HYDROCODONE/ACETAMINOPHEN 5/325MG TABLET PO PRN ×3 (02:57→16:34)
[2021-02-20 04:00] VITALS: BP 105/33
[2021-02-20 08:03] VITALS: BP 109/39
[2021-02-20] MEDS: PANTOPRAZOLE SODIUM 40 MG/VIAL IV SCH (08:42)
[2021-02-20] MEDS: MIDODRINE HCL 5MG TABLET PO SCH ×3 (08:43→16:34)
[2021-02-20] MEDS: FOLIC ACID/VITAMIN B COMP W-C TABLET PO SCH (08:43)
[2021-02-20] MEDS: DOCUSATE SODIUM 250MG CAPSULE PO SCH ×2 (08:43→16:34)
[2021-02-20 09:11] LABS: ACTIN (SMOOTH MUSCLE) ANTIBODY 15 Units (0-19); ANTI-MYELOPEROXIDASE AB < 9.0 U/mL (0.0-9.0); ANTI-PROTEINASE 3 ABS < 3.5 U/mL (0.0-3.5)
[2021-02-20 10:06] LABS: ANGIOTENSION CONVERTING ENZYME 42 U/L (14-82)
[2021-02-20 12:00] VITALS: BP 99/40
[2021-02-20 13:11] LABS: ALDOLASE 11.3 U/L (3.3-10.3); ANA IFA Negative (.); ATYPICAL P-ANCA <1:20 titer (Neg:<1:20); CYTOPLASMIC C-ANCA <1:20 titer (Neg:<1:20); PERINUCLEAR P-ANCA <1:20 titer (Neg:<1:20)
[2021-02-20] MEDS ORDERED: NALOXONE HCL 0.4MG/ML VIAL IV PRN (14:15)
[2021-02-20 16:00] VITALS: BP 113/39
[2021-02-20 20:00] VITALS: BP 99/33
[2021-02-20] MEDS: SILDENAFIL CITRATE 20MG TABLET PO SCH (21:39)
[2021-02-20] MEDS: DIPHENHYDRAMINE 50MG/ML VIAL IV PRN (23:37)
[2021-02-21] VITALS (18 sets, daily range): BP systolic 87–110; BP diastolic 11–60
[2021-02-21] MEDS: HYDROCODONE/ACETAMINOPHEN 5/325MG TABLET PO PRN ×2 (01:54→17:10)
[2021-02-21] MEDS: ACETAMINOPHEN 325MG TABLET PO PRN (04:33)
[2021-02-21] MEDS: SILDENAFIL CITRATE 20MG TABLET PO SCH ×3 (06:35→21:29)
[2021-02-21] MEDS ORDERED: METHADONE HCL 5MG TABLET PO SCH (07:15)
[2021-02-21] MEDS: PANTOPRAZOLE SODIUM 40 MG/VIAL IV SCH (07:56)
[2021-02-21] MEDS: FOLIC ACID/VITAMIN B COMP W-C TABLET PO SCH (07:56)
[2021-02-21] MEDS: DOCUSATE SODIUM 250MG CAPSULE PO SCH ×2 (07:57→17:10)
[2021-02-21] MEDS: MIDODRINE HCL 5MG TABLET PO SCH ×3 (07:59→17:11)
[2021-02-21] MEDS ORDERED: LIDOCAINE HCL 1% 10 MG/ML 10ML VIAL ONE ×2 (10:45→11:18)
[2021-02-21] MEDS ORDERED: HEPARIN 1000 UNITS/ML 10ML ONE (10:45)
[2021-02-21] MEDS ORDERED: FENTANYL CITRATE/PF 50MCG/ML 2ML VIAL ONE (11:26)
[2021-02-21] MEDS ORDERED: FENTANYL CITRATE/PF 50MCG/ML 2ML VIAL IV ONE (11:30)
[2021-02-21 12:47] LABS: HEMATOCRIT. 26.7 % (36.0-48.0); HEMOGLOBIN. 7.9 g/dL (12.0-16.0); MEAN CORPUSCULAR HEMOGLOBIN 28.3 pg (28.0-32.0); MEAN CORPUSCULAR VOLUME 95.2 fL (81.0-99.0); MEAN PLATELET VOLUME 10.2 fl (7.4-10.4); PLATELET 273 x1000/uL (130-400); RED CELL DISTRIBUTION WIDTH 17.4 % (11.6-14.6)
[2021-02-21 14:26] LABS: NUCLEATED RED BLOOD CELLS 2 /100 WBC
[2021-02-21 14:27] LABS: PLATELET ESTIMATE NORMAL
[2021-02-22] VITALS (7 sets, daily range): BP systolic 97–108; BP diastolic 31–73
[2021-02-22] MEDS: HYDROCODONE/ACETAMINOPHEN 5/325MG TABLET PO PRN (00:45)
[2021-02-22] MEDS: ACETAMINOPHEN 325MG TABLET PO PRN ×2 (05:54→20:27)
[2021-02-22] MEDS: SILDENAFIL CITRATE 20MG TABLET PO SCH ×3 (05:54→22:00)
[2021-02-22 06:54] LABS: HEMATOCRIT. 25.6 % (36.0-48.0); HEMOGLOBIN. 7.8 g/dL (12.0-16.0); MEAN CORPUSCULAR HEMOGLOBIN 28.9 pg (28.0-32.0); MEAN CORPUSCULAR VOLUME 94.2 fL (81.0-99.0); MEAN PLATELET VOLUME 9.7 fl (7.4-10.4); PLATELET 286 x1000/uL (130-400); RED BLOOD CELL COUNT 2.71 mill/uL (4.2-5.4); RED CELL DISTRIBUTION WIDTH 17.4 % (11.6-14.6)
[2021-02-22] MEDS: PANTOPRAZOLE SODIUM 40 MG/VIAL IV SCH (09:00)
[2021-02-22] MEDS: DOCUSATE SODIUM 250MG CAPSULE PO SCH ×2 (09:14→17:54)
[2021-02-22] MEDS: FOLIC ACID/VITAMIN B COMP W-C TABLET PO SCH (09:14)
[2021-02-22] MEDS: MIDODRINE HCL 5MG TABLET PO SCH ×3 (09:16→17:54)
[2021-02-22] MEDS: METHADONE HCL 5MG TABLET PO SCH (09:22)
[2021-02-22] MEDS: DIPHENHYDRAMINE 50MG/ML VIAL IV PRN (15:41)
[2021-02-22 17:40] LABS: NUCLEATED RED BLOOD CELLS 2 /100 WBC; PLATELET ESTIMATE NORMAL
[2021-02-22] MEDS ORDERED: CEFEPIME 1,000 MG in DEXTROSE 5% WATER 50 ML IV SCH (18:00)
[2021-02-22] MEDS: LORAZEPAM 2MG/ML CPJ IV PRN (20:27)
[2021-02-23] MEDS: LORAZEPAM 2MG/ML CPJ IV PRN (03:28)
[2021-02-23 04:00] VITALS: BP 144/94
[2021-02-23] MEDS: SILDENAFIL CITRATE 20MG TABLET PO SCH (05:55)
[2021-02-23 06:52] VITALS: BP 102/68
[2021-02-23] MEDS ORDERED: METHADONE HCL 5MG TABLET PO SCH (07:45)
[2021-02-23 08:00] VITALS: BP 92/68
[2021-02-23] MEDS: PANTOPRAZOLE SODIUM 40 MG/VIAL IV SCH (08:14)
[2021-02-23] MEDS: FOLIC ACID/VITAMIN B COMP W-C TABLET PO SCH (08:14)
[2021-02-23] MEDS: METHADONE HCL 5MG TABLET PO SCH (08:15)
[2021-02-23] MEDS: DOCUSATE SODIUM 250MG CAPSULE PO SCH (08:15)
[2021-02-23] MEDS: MIDODRINE HCL 5MG TABLET PO SCH ×2 (08:15→11:56)
[2021-02-23 11:30] VITALS: BP 102/32
[2021-02-23 12:00] VITALS: BP 107/36
== END 2021-02-23 13:15 | DRG 871 ==
LOC: ER 10:08 → 6WST 11:51 → ENRESERV 17:54 → 7WST 02-14 11:31 → 6WST 02-14 21:43
PROVIDERS: ADMIT Internal Medicine; ATTEND Internal Medicine
PROC: 5A1D70Z Performance of Urinary Filtration, Intermittent, Less than 6 Hours Per Day (ICD-10-PCS; 2021-02-10)
PROC: 30233N1 Transfusion of Nonautologous Red Blood Cells into Peripheral Vein, Percutaneous Approach (ICD-10-PCS; 2021-02-11)
PROC: 5A1D70Z Performance of Urinary Filtration, Intermittent, Less than 6 Hours Per Day (ICD-10-PCS; 2021-02-13)
PROC: 5A1D70Z Performance of Urinary Filtration, Intermittent, Less than 6 Hours Per Day (ICD-10-PCS; 2021-02-15)
PROC: 5A1D70Z Performance of Urinary Filtration, Intermittent, Less than 6 Hours Per Day (ICD-10-PCS; 2021-02-17)
PROC: 05PYX3Z Removal of Infusion Device from Upper Vein, External Approach (ICD-10-PCS; principal; 2021-02-21)
PROC: 02H633Z Insertion of Infusion Device into Right Atrium, Percutaneous Approach (ICD-10-PCS; 2021-02-21)
PROC: 0JH63XZ Insertion of Tunneled Vascular Access Device into Chest Subcutaneous Tissue and Fascia, Percutaneous Approach (ICD-10-PCS; 2021-02-21)
PROC: B518ZZA Fluoroscopy of Superior Vena Cava, Guidance (ICD-10-PCS; 2021-02-21)
PROC: B548ZZA Ultrasonography of Superior Vena Cava, Guidance (ICD-10-PCS; 2021-02-21)
DX: A41.9 Sepsis, unspecified organism (principal); I21.4 Non-ST elevation (NSTEMI) myocardial infarction; N18.6 End stage renal disease; J18.9 Pneumonia, unspecified organism; I50.33 Acute on chronic diastolic (congestive) heart failure; G82.20 Paraplegia, unspecified; M62.82 Rhabdomyolysis; I13.2 Hypertensive heart and chronic kidney disease with heart failure and with stage 5 chronic kidney disease, or end stage renal disease; N17.9 Acute kidney failure, unspecified; D63.8 Anemia in other chronic diseases classified elsewhere; E11.22 Type 2 diabetes mellitus with diabetic chronic kidney disease; E87.5 Hyperkalemia; R33.9 Retention of urine, unspecified; I48.0 Paroxysmal atrial fibrillation; M48.061 Spinal stenosis, lumbar region without neurogenic claudication; R53.81 Other malaise; R26.2 Difficulty in walking, not elsewhere classified; M54.16 Radiculopathy, lumbar region; R70.0 Elevated erythrocyte sedimentation rate; E66.01 Morbid (severe) obesity due to excess calories; G89.29 Other chronic pain; M51.36 Other intervertebral disc degeneration, lumbar region; Z20.822 Contact with and (suspected) exposure to COVID-19; I25.2 Old myocardial infarction; Z86.73 Personal history of transient ischemic attack (TIA), and cerebral infarction without residual deficits; Z99.2 Dependence on renal dialysis; Z79.1 Long term (current) use of non-steroidal anti-inflammatories (NSAID); Z79.899 Other long term (current) drug therapy; Z79.84 Long term (current) use of oral hypoglycemic drugs; Z83.3 Family history of diabetes mellitus; Z82.49 Family history of ischemic heart disease and other diseases of the circulatory system; Z74.01 Bed confinement status
CPT/HCPCS: 36415; 36558; 36589; 71045; 71275; 72128; 72131; 72195; 74176; 77001; 80048; 80053; 80061; 80202; 81003; 82040; 82085; 82164; 82533; 82550; 82553; 82962; 83036; 83520; 83880; 84132; 84134; 84145; 84439; 84443; 84484; 85018; 85025; 85049; 85379; 85384; 85651; 86140; 86160; 86225; 86235; 86256; 86705; 86709; 86803; 86850; 86900; 86920; 87340; 87426; 87804; 93005; 93306; 93923; 93970; 97162; 97165; 99152; 99153; 99285; A6261; C1750; C1769; C1893; C9113; J0692; J0885; J1200; J1644; J1815; J2060; J2270; J2405; J2997; J3010; J3370; J3490; J7040; J7060; P9016; U0003; U0005; G0500

== ENCOUNTER 2021-02-24 19:40 | Inpatient (IN) | payer MEDICARE, OTHER ==
[~2021-02-24] VITALS: Ht 172.7 cm; Wt 115.7 kg
[2021-02-24] MEDS ORDERED: SODIUM CHLORIDE 0.9% 1000ML BAG (SEPSIS BOLUS) IV ONE (21:00)
[2021-02-24] MEDS ORDERED: PIPERACILLIN/TAZ 3.375G PREMIX 50 ML IV ONE (21:00)
[2021-02-24] MEDS ORDERED: SODIUM CHLORIDE 0.9% 1,000 ML IV ONE (21:00)
[2021-02-24] MEDS ORDERED: VANCOMYCIN 1 G PREMIX 200 ML IV ONE (21:00)
[2021-02-24 23:24] LABS: CHLORIDE 99 mEq/L (98-107)
[2021-02-24] MEDS ORDERED: HYDROCODONE/ACETAMINOPHEN 5/325MG TABLET PO ONE (23:30)
[2021-02-24 23:34] LABS: HEMATOCRIT. 29.5 % (36.0-48.0); HEMOGLOBIN. 8.4 g/dL (12.0-16.0); MEAN CORPUSCULAR HEMOGLOBIN 28.5 pg (28.0-32.0); MEAN CORPUSCULAR VOLUME 100.2 fL (81.0-99.0); MEAN PLATELET VOLUME 9.7 fl (7.4-10.4); PLATELET 264 x1000/uL (130-400); RED BLOOD CELL COUNT 2.95 mill/uL (4.2-5.4); RED CELL DISTRIBUTION WIDTH 18.6 % (11.6-14.6)
[2021-02-25] VITALS (39 sets, daily range): BP systolic 40–137; BP diastolic 22–107
[2021-02-25] MEDS ORDERED: CALCIUM CHLORIDE 1GM/10ML SYR IV ONE ×2 (00:15→09:49)
[2021-02-25] MEDS ORDERED: DEXTROSE 50% WATER 50ML SYRINGE IV ONE ×2 (00:15→09:49)
[2021-02-25] MEDS ORDERED: ALBUTEROL (0.083%) 2.5MG/3ML NEB HHN ONE ×2 (00:15→09:35)
[2021-02-25] MEDS ORDERED: INSULIN REGULAR (HUMULIN R) 300UNITS/3ML VIAL IV ONE (00:15)
[2021-02-25] MEDS ORDERED: SODIUM BICARBONATE 8.4% 1 MEQ/ML 50ML SYR IV ONE ×2 (00:15→09:49)
[2021-02-25] MEDS ORDERED: ACETAMINOPHEN 325MG TABLET PO PRN (02:15)
[2021-02-25] MEDS ORDERED: LORAZEPAM 2MG/ML CPJ IV PRN (02:15)
[2021-02-25] MEDS ORDERED: ONDANSETRON HCL 4MG/2ML INJ IV PRN (02:15)
[2021-02-25] MEDS ORDERED: DEXTROSE 50% WATER 50ML SYRINGE IV PRN (02:15)
[2021-02-25 05:05] LABS: NUCLEATED RED BLOOD CELLS 1 /100 WBC; PLATELET ESTIMATE NORMAL
[2021-02-25] MEDS: SODIUM CHLORIDE 0.9% INJ 3ML FLUSH IVF SCH ×3 (06:19→22:12)
[2021-02-25] MEDS ORDERED: NOREPINEPHRINE 8 MG in DEXT 5% WATER 242 ML IV PRN (07:00)
[2021-02-25] MEDS: INSULIN LISPRO 100 UNITS/ML SUBCUT SCH ×4 (08:20→21:00)
[2021-02-25] MEDS: NOREPINEPHRINE 8 MG in DEXT 5% WATER 242 ML IV PRN ×3 (08:41→17:24)
[2021-02-25] MEDS: BLOOD SUGAR DIAGNOSTIC STRIP TEST SCH ×4 (09:12→21:00)
[2021-02-25] MEDS ORDERED: AMIODARONE HCL 50MG/ML 3ML VIAL IV ONE (09:49)
[2021-02-25] MEDS ORDERED: MAGNESIUM SULFATE 4G IN WATER 100ML PREMIX IV ONE (09:49)
[2021-02-25] MEDS ORDERED: LIDOCAINE HCL 2% 5ML SYRINGE IV ONE (09:49)
[2021-02-25] MEDS ORDERED: EPINEPHRINE 0.1MG/ML (1:10,000) 10ML SYR ONE (09:49)
[2021-02-25] MEDS ORDERED: HEPARIN 25,000 UNITS PREMIX 250 ML IV SCH (12:45)
[2021-02-25 13:57] LABS: INR 1.6; PARTIAL THROMBOPLASTIN TIME 36.2 sec (23.4-31.0); PROTHROMBIN TIME 16.7 sec (9.6-11.0)
[2021-02-25] MEDS: DIPHENHYDRAMINE 50MG/ML VIAL IV PRN ×2 (14:47→16:56)
[2021-02-25 15:04] LABS: HEPATITIS B SURFACE ANTIGEN NEGATIVE
[2021-02-25] MEDS ORDERED: HEPARIN BOLUS PRN aPTT <30 IV (15:30)
[2021-02-25] MEDS ORDERED: HEPARIN 60 UNITS/KG BOLUS IV NR (15:40)
[2021-02-25] MEDS: HEPARIN 25,000 UNITS PREMIX 250 ML IV SCH (17:00)
[2021-02-25] MEDS: NOREPINEPHRINE 32 MG in DEXT 5% WATER 218 ML IV PRN (20:20)
[2021-02-25] MEDS: DOPAMINE 800MG PREMIX (DOUBLE) 250 ML IV PRN (20:55)
[2021-02-25] MEDS ORDERED: DOPAMINE 800MG PREMIX (DOUBLE) 250 ML IV ONE (20:57)
[2021-02-25] MEDS: PHENYLEPHRINE 100 MG in DEXT 5% WATER 240 ML IV PRN (21:40)
[2021-02-25] MEDS: VASOPRESSIN 20 UNIT in SODIUM CHLORIDE 0.9% 99 ML IV PRN (21:40)
[2021-02-25 22:20] LABS: BG BASE EXCESS -14.8 mmol/L (-2.0-2.0); BG CARBOXYHEMOGLOBIN 0.2 % (0.5-1.5); BG DEOXYHEMOGLOBIN 34.9 % (0.0-5.0); BG FRACTION INSPIRED OXYGEN 100; BG HCO3 ACT 13.7 mmol/L (22.0-26.0); BG METHEMOGLOBIN 0.3 % (0.0-1.5); BG OXYGEN SATURATION 64.9 % (92.0-98.5); BG OXYHEMOGLOBIN 64.6 % (94.0-97.0); BG PCO2 42.9 mmHg (35.0-45.0); BG PH 7.123 (7.350-7.450); BG PO2 48.3 mmHg (75.0-100.0); BG SAMPLE SITE RIGHT BRACHIAL; BG TOTAL HEMOGLOBIN 10.2 g/dL (12.0-18.0); BG TOTAL RESPIRATORY RATE 20 b/min; BG VENT MODE VENT - AC
[2021-02-25] MEDS ORDERED: SODIUM BICARBONATE 8.4% 1 MEQ/ML 50ML SYR IV NR (23:30)
[2021-02-25 23:43] LABS: CHLORIDE 97 mEq/L (98-107)
[2021-02-26] VITALS (34 sets, daily range): BP systolic 35–116; BP diastolic 17–95
[2021-02-26] MEDS: HEPARIN BOLUS PRN aPTT 30-44 IV (00:04)
[2021-02-26 00:19] LABS: PHOSPHORUS 9.2 mg/dL (2.5-4.9)
[2021-02-26] MEDS: SODIUM BICARBONATE 150 MEQ in DEXTROSE 5% WATER 1,000 ML IV SCH ×2 (00:52→22:49)
[2021-02-26] MEDS: PHENYLEPHRINE 100 MG in DEXT 5% WATER 240 ML IV PRN ×5 (01:16→23:18)
[2021-02-26 03:00] LABS: BG BASE EXCESS -6.3 mmol/L (-2.0-2.0); BG CARBOXYHEMOGLOBIN 0.3 % (0.5-1.5); BG DEOXYHEMOGLOBIN 46.2 % (0.0-5.0); BG FRACTION INSPIRED OXYGEN 100; BG HCO3 ACT 17.7 mmol/L (22.0-26.0); BG METHEMOGLOBIN 0.3 % (0.0-1.5); BG OXYGEN SATURATION 53.5 % (92.0-98.5); BG OXYHEMOGLOBIN 53.2 % (94.0-97.0); BG PCO2 29.6 mmHg (35.0-45.0); BG PH 7.394 (7.350-7.450); BG PO2 32.8 mmHg (75.0-100.0); BG SAMPLE SITE RIGHT BRACHIAL; BG TOTAL HEMOGLOBIN 9.5 g/dL (12.0-18.0); BG TOTAL RESPIRATORY RATE 36 b/min; BG VENT MODE VENT - AC
[2021-02-26] MEDS: DOPAMINE 800MG PREMIX (DOUBLE) 250 ML IV PRN ×3 (03:26→16:55)
[2021-02-26] MEDS: NOREPINEPHRINE 32 MG in DEXT 5% WATER 218 ML IV PRN ×3 (03:37→20:57)
[2021-02-26] MEDS: EPINEPHRINE 10 MG in SODIUM CHLORIDE 0.9% 240 ML IV PRN ×9 (04:13→23:21)
[2021-02-26] MEDS: VASOPRESSIN 20 UNIT in SODIUM CHLORIDE 0.9% 99 ML IV PRN ×4 (04:22→22:14)
[2021-02-26] MEDS: SODIUM CHLORIDE 0.9% INJ 3ML FLUSH IVF SCH ×3 (06:00→22:00)
[2021-02-26] MEDS: BLOOD SUGAR DIAGNOSTIC STRIP TEST SCH ×4 (06:30→20:58)
[2021-02-26] MEDS: INSULIN LISPRO 100 UNITS/ML SUBCUT SCH ×4 (07:00→20:54)
[2021-02-26 10:03] LABS: BG BASE EXCESS -3.9 mmol/L (-2.0-2.0); BG CARBOXYHEMOGLOBIN 0.1 % (0.5-1.5); BG DEOXYHEMOGLOBIN 0.2 % (0.0-5.0); BG FRACTION INSPIRED OXYGEN 100; BG HCO3 ACT 17.2 mmol/L (22.0-26.0); BG METHEMOGLOBIN 0.3 % (0.0-1.5); BG OXYGEN SATURATION 99.8 % (92.0-98.5); BG OXYHEMOGLOBIN 99.4 % (94.0-97.0); BG PCO2 20.7 mmHg (35.0-45.0); BG PH 7.538 (7.350-7.450); BG PO2 354.8 mmHg (75.0-100.0); BG SAMPLE SITE LEFT RADIAL; BG VENT MODE VENT - AC
[2021-02-26] MEDS ORDERED: ALBUMIN HUMAN 12.5GM/50ML (25%) IV NR (10:45)
[2021-02-26 11:19] LABS: HEMATOCRIT. 34.6 % (36.0-48.0); HEMOGLOBIN. 9.8 g/dL (12.0-16.0); MEAN CORPUSCULAR HEMOGLOBIN 29.2 pg (28.0-32.0); MEAN CORPUSCULAR VOLUME 103.2 fL (81.0-99.0); MEAN PLATELET VOLUME 10.6 fl (7.4-10.4); PLATELET 302 x1000/uL (130-400); RED BLOOD CELL COUNT 3.35 mill/uL (4.2-5.4); RED CELL DISTRIBUTION WIDTH 20.1 % (11.6-14.6)
[2021-02-26] MEDS: HEPARIN 25,000 UNITS PREMIX 250 ML IV SCH (12:07)
[2021-02-26 12:08] LABS: NUCLEATED RED BLOOD CELLS 1 /100 WBC; PLATELET ESTIMATE NORMAL
[2021-02-26] MEDS: PIPERACILLIN/TAZOBACTAM 3.375 G in DEXTROSE 5% WATER 50 ML IV SCH ×3 (12:09→20:54)
[2021-02-26] MEDS ORDERED: PIPERACILLIN/TAZOBACTAM 3.375 G in DEXTROSE 5% WATER 50 ML IV SCH (14:00)
[2021-02-26 14:49] LABS: BG BASE EXCESS -7.1 mmol/L (-2.0-2.0); BG CARBOXYHEMOGLOBIN 0.3 % (0.5-1.5); BG DEOXYHEMOGLOBIN 0.3 % (0.0-5.0); BG FRACTION INSPIRED OXYGEN 100; BG HCO3 ACT 15.3 mmol/L (22.0-26.0); BG METHEMOGLOBIN 0.2 % (0.0-1.5); BG OXYGEN SATURATION 99.7 % (92.0-98.5); BG OXYHEMOGLOBIN 99.2 % (94.0-97.0); BG PCO2 21.9 mmHg (35.0-45.0); BG PH 7.461 (7.350-7.450); BG PO2 373.3 mmHg (75.0-100.0); BG SAMPLE SITE RIGHT BRACHIAL; BG TOTAL HEMOGLOBIN 9.8 g/dL (12.0-18.0); BG VENT MODE VENT - AC
[2021-02-26] MEDS ORDERED: VANCOMYCIN 500 MG PREMIX 100 ML IV NR (15:00)
[2021-02-26] MEDS: IPRATROPIUM/ALBUTEROL 0.5-3(2.5)MG/3ML NEB HHN SCH ×2 (16:38→20:14)
[2021-02-27] VITALS (42 sets, daily range): BP systolic 73–152; BP diastolic 46–72
[2021-02-27] MEDS: DOPAMINE 800MG PREMIX (DOUBLE) 250 ML IV PRN ×2 (00:32→05:49)
[2021-02-27] MEDS: IPRATROPIUM/ALBUTEROL 0.5-3(2.5)MG/3ML NEB HHN SCH ×4 (01:10→20:19)
[2021-02-27] MEDS: VASOPRESSIN 20 UNIT in SODIUM CHLORIDE 0.9% 99 ML IV PRN ×2 (01:23→08:25)
[2021-02-27] MEDS: HEPARIN 25,000 UNITS PREMIX 250 ML IV SCH ×3 (01:30→23:53)
[2021-02-27] MEDS: EPINEPHRINE 10 MG in SODIUM CHLORIDE 0.9% 240 ML IV PRN ×5 (02:45→08:40)
[2021-02-27] MEDS: HEPARIN BOLUS PRN aPTT 30-44 IV ×3 (04:00→20:44)
[2021-02-27] MEDS: SODIUM CHLORIDE 0.9% INJ 3ML FLUSH IVF SCH ×3 (05:20→22:00)
[2021-02-27] MEDS: PHENYLEPHRINE 100 MG in DEXT 5% WATER 240 ML IV PRN ×2 (05:20→10:52)
[2021-02-27 05:30] LABS: HEMATOCRIT. 32.1 % (36.0-48.0); HEMOGLOBIN. 9.2 g/dL (12.0-16.0); MEAN CORPUSCULAR HEMOGLOBIN 28.8 pg (28.0-32.0); MEAN CORPUSCULAR VOLUME 100.5 fL (81.0-99.0); MEAN PLATELET VOLUME 10.1 fl (7.4-10.4); PLATELET 267 x1000/uL (130-400); RED BLOOD CELL COUNT 3.19 mill/uL (4.2-5.4); RED CELL DISTRIBUTION WIDTH 19.3 % (11.6-14.6)
[2021-02-27] MEDS: INSULIN LISPRO 100 UNITS/ML SUBCUT SCH ×4 (05:46→20:06)
[2021-02-27] MEDS: BLOOD SUGAR DIAGNOSTIC STRIP TEST SCH ×4 (06:30→20:07)
[2021-02-27 07:41] LABS: BG BASE EXCESS -9.3 mmol/L (-2.0-2.0); BG DEOXYHEMOGLOBIN 9.5 % (0.0-5.0); BG HCO3 ACT 15.2 mmol/L (22.0-26.0); BG METHEMOGLOBIN 0.3 % (0.0-1.5); BG OXYGEN SATURATION 90.5 % (92.0-98.5); BG OXYHEMOGLOBIN 90.2 % (94.0-97.0); BG PCO2 28.6 mmHg (35.0-45.0); BG PH 7.343 (7.350-7.450); BG SAMPLE SITE RIGHT RADIAL; BG TOTAL HEMOGLOBIN 10.1 g/dL (12.0-18.0); BG VENT MODE VENT - AC
[2021-02-27] MEDS: NOREPINEPHRINE 32 MG in DEXT 5% WATER 218 ML IV PRN (07:53)
[2021-02-27 10:51] LABS: NUCLEATED RED BLOOD CELLS 11 /100 WBC; PLATELET ESTIMATE NORMAL
[2021-02-27] MEDS: MIDODRINE HCL 5MG TABLET PO SCH ×2 (13:00→17:42)
[2021-02-27] MEDS: MEROPENEM 1000MG in NORMAL SALINE 100ML IV SCH (15:08)
[2021-02-27] MEDS: HYDROCORTISONE SOD SUCCINATE 100 MG/2 ML VIAL IV SCH ×2 (15:08→21:01)
[2021-02-27] MEDS: SODIUM BICARBONATE 150 MEQ in DEXTROSE 5% WATER 1,000 ML IV SCH (20:07)
[2021-02-28] VITALS (67 sets, daily range): BP systolic 71–150; BP diastolic 29–59
[2021-02-28] MEDS: IPRATROPIUM/ALBUTEROL 0.5-3(2.5)MG/3ML NEB HHN SCH ×4 (01:34→20:37)
[2021-02-28 02:47] LABS: HEMATOCRIT. 30.5 % (36.0-48.0); HEMOGLOBIN. 9.1 g/dL (12.0-16.0); MEAN CORPUSCULAR HEMOGLOBIN 28.5 pg (28.0-32.0); MEAN CORPUSCULAR VOLUME 95.8 fL (81.0-99.0); MEAN PLATELET VOLUME 9.8 fl (7.4-10.4); PLATELET 208 x1000/uL (130-400); RED BLOOD CELL COUNT 3.18 mill/uL (4.2-5.4); RED CELL DISTRIBUTION WIDTH 18.7 % (11.6-14.6)
[2021-02-28] MEDS: HEPARIN BOLUS PRN aPTT 30-44 IV (03:26)
[2021-02-28 03:44] LABS: NUCLEATED RED BLOOD CELLS 1 /100 WBC; PLATELET ESTIMATE NORMAL
[2021-02-28] MEDS: HYDROCORTISONE SOD SUCCINATE 100 MG/2 ML VIAL IV SCH (05:19)
[2021-02-28 08:56] LABS: BG BASE EXCESS -3.1 mmol/L (-2.0-2.0); BG CARBOXYHEMOGLOBIN 0.5 % (0.5-1.5); BG DEOXYHEMOGLOBIN 0.9 % (0.0-5.0); BG FRACTION INSPIRED OXYGEN 40; BG HCO3 ACT 19.3 mmol/L (22.0-26.0); BG METHEMOGLOBIN 0.2 % (0.0-1.5); BG OXYGEN SATURATION 99.1 % (92.0-98.5); BG OXYHEMOGLOBIN 98.4 % (94.0-97.0); BG PH 7.488 (7.350-7.450); BG PO2 150.1 mmHg (75.0-100.0); BG SAMPLE SITE ALINE; BG TOTAL HEMOGLOBIN 9.6 g/dL (12.0-18.0); BG VENT MODE VENT - AC
[2021-02-28] MEDS: MIDODRINE HCL 5MG TABLET PO SCH ×3 (09:01→18:28)
[2021-02-28] MEDS ORDERED: LIDOCAINE HCL 1% 10 MG/ML 10ML VIAL ONE (09:39)
[2021-02-28] MEDS: INSULIN LISPRO 100 UNITS/ML SUBCUT SCH ×3 (12:00→21:27)
[2021-02-28] MEDS: BLOOD SUGAR DIAGNOSTIC STRIP TEST SCH ×3 (12:23→21:06)
[2021-02-28] MEDS: MEROPENEM 1000MG in NORMAL SALINE 100ML IV SCH (12:43)
[2021-02-28] MEDS: ENOXAPARIN 100MG/ML SYR SUBCUT SCH (12:44)
[2021-02-28] MEDS: SODIUM CHLORIDE 0.9% INJ 3ML FLUSH IVF SCH ×2 (14:00→21:06)
[2021-02-28] MEDS ORDERED: VANCOMYCIN 500 MG PREMIX 100 ML IV NR (18:00)
[2021-02-28] MEDS: SODIUM BICARBONATE 150 MEQ in DEXTROSE 5% WATER 1,000 ML IV SCH (21:53)
[2021-02-28] MEDS ORDERED: HEPARIN SODIUM 1,000 UNIT/1ML VIAL IV NR ×2 (22:00→22:20)
[2021-02-28] MEDS: NOREPINEPHRINE 32 MG in DEXT 5% WATER 218 ML IV PRN (22:45)
[2021-02-28] MEDS: PHENYLEPHRINE 100 MG in DEXT 5% WATER 240 ML IV PRN (22:45)
[2021-03-01] VITALS (46 sets, daily range): BP systolic 11–135; BP diastolic 11–84
[2021-03-01] MEDS: IPRATROPIUM/ALBUTEROL 0.5-3(2.5)MG/3ML NEB HHN SCH ×4 (01:40→21:00)
[2021-03-01] MEDS: SODIUM CHLORIDE 0.9% INJ 3ML FLUSH IVF SCH ×3 (06:00→22:39)
[2021-03-01 06:10] LABS: BG BASE EXCESS -7.4 mmol/L (-2.0-2.0); BG CARBOXYHEMOGLOBIN 0.3 % (0.5-1.5); BG DEOXYHEMOGLOBIN 0.2 % (0.0-5.0); BG FRACTION INSPIRED OXYGEN 100; BG METHEMOGLOBIN 0.3 % (0.0-1.5); BG OXYGEN SATURATION 99.8 % (92.0-98.5); BG OXYHEMOGLOBIN 99.2 % (94.0-97.0); BG PCO2 25.3 mmHg (35.0-45.0); BG PO2 395.1 mmHg (75.0-100.0); BG SAMPLE SITE ALINE; BG TOTAL HEMOGLOBIN 8.1 g/dL (12.0-18.0); BG VENT MODE MASK - NRB
[2021-03-01] MEDS: BLOOD SUGAR DIAGNOSTIC STRIP TEST SCH ×4 (07:19→21:00)
[2021-03-01] MEDS: INSULIN LISPRO 100 UNITS/ML SUBCUT SCH ×4 (07:25→22:44)
[2021-03-01] MEDS: PHENYLEPHRINE 100 MG in DEXT 5% WATER 240 ML IV PRN ×3 (09:15→22:31)
[2021-03-01 10:13] LABS: HEMATOCRIT. 29.6 % (36.0-48.0); HEMOGLOBIN. 8.8 g/dL (12.0-16.0); MEAN CORPUSCULAR HEMOGLOBIN 27.5 pg (28.0-32.0); MEAN CORPUSCULAR VOLUME 92.7 fL (81.0-99.0); MEAN PLATELET VOLUME 9.8 fl (7.4-10.4); PLATELET 159 x1000/uL (130-400); RED CELL DISTRIBUTION WIDTH 18.6 % (11.6-14.6)
[2021-03-01 10:28] LABS: CHLORIDE 96 mEq/L (98-107)
[2021-03-01 10:52] LABS: INR 1.6; PROTHROMBIN TIME 16.4 sec (9.6-11.0)
[2021-03-01 10:59] LABS: NUCLEATED RED BLOOD CELLS 2 /100 WBC
[2021-03-01 11:01] LABS: PLATELET ESTIMATE NORMAL
[2021-03-01] MEDS: ACETAMINOPHEN 325MG TABLET PO PRN ×2 (11:21→19:01)
[2021-03-01] MEDS: ENOXAPARIN 100MG/ML SYR SUBCUT SCH (11:22)
[2021-03-01] MEDS: MIDODRINE HCL 5MG TABLET PO SCH ×3 (11:22→18:00)
[2021-03-01] MEDS: MEROPENEM 1000MG in NORMAL SALINE 100ML IV SCH (14:44)
[2021-03-01] MEDS: SODIUM BICARBONATE 150 MEQ in DEXTROSE 5% WATER 1,000 ML IV SCH (22:30)
[2021-03-02] VITALS (100 sets, daily range): BP systolic 76–145; BP diastolic 42–72
[2021-03-02] MEDS: IPRATROPIUM/ALBUTEROL 0.5-3(2.5)MG/3ML NEB HHN SCH ×4 (00:54→21:00)
[2021-03-02] MEDS: NOREPINEPHRINE 32 MG in DEXT 5% WATER 218 ML IV PRN ×2 (02:14→16:13)
[2021-03-02] MEDS: ACETAMINOPHEN 325MG TABLET PO PRN (02:38)
[2021-03-02] MEDS: PHENYLEPHRINE 100 MG in DEXT 5% WATER 240 ML IV PRN ×4 (04:02→22:32)
[2021-03-02] MEDS: SODIUM CHLORIDE 0.9% INJ 3ML FLUSH IVF SCH ×3 (05:08→21:31)
[2021-03-02] MEDS: BLOOD SUGAR DIAGNOSTIC STRIP TEST SCH ×4 (05:40→21:45)
[2021-03-02] MEDS: INSULIN LISPRO 100 UNITS/ML SUBCUT SCH ×4 (06:06→21:50)
[2021-03-02] MEDS: ENOXAPARIN 100MG/ML SYR SUBCUT SCH ×2 (09:43→10:18)
[2021-03-02] MEDS ORDERED: IOHEXOL-350 100 ML BOTTLE ONE (09:45)
[2021-03-02] MEDS: MIDODRINE HCL 5MG TABLET PO SCH ×3 (09:45→16:45)
[2021-03-02] MEDS: FOLIC ACID/VITAMIN B COMP W-C TABLET PO SCH (11:54)
[2021-03-02] MEDS: FOLIC ACID 1MG TABLET PO SCH (11:54)
[2021-03-02] MEDS: CALCIUM ACETATE 667 MG/5 ML SOLUTION NG SCH ×2 (13:04→16:45)
[2021-03-02] MEDS: CINACALCET HCL 30MG TABLET PO SCH (13:04)
[2021-03-02] MEDS: MEROPENEM 1000MG in NORMAL SALINE 100ML IV SCH (13:10)
[2021-03-02 13:29] LABS: AMYLASE 48 IU/L (25-115)
[2021-03-02 13:31] LABS: HEMOGLOBIN. 9.2 g/dL (12.0-16.0); MEAN CORPUSCULAR HEMOGLOBIN 27.7 pg (28.0-32.0); MEAN CORPUSCULAR VOLUME 93.2 fL (81.0-99.0); MEAN PLATELET VOLUME 10.8 fl (7.4-10.4); PLATELET 135 x1000/uL (130-400); RED BLOOD CELL COUNT 3.33 mill/uL (4.2-5.4); RED CELL DISTRIBUTION WIDTH 18.2 % (11.6-14.6)
[2021-03-02 14:10] LABS: NUCLEATED RED BLOOD CELLS 1 /100 WBC
[2021-03-02 14:11] LABS: PLATELET ESTIMATE NORMAL
[2021-03-02] MEDS ORDERED: HEPARIN SODIUM 1,000 UNIT/1ML VIAL IV NR (15:15)
[2021-03-02] MEDS ORDERED: MORPHINE SULFATE 2 MG/ML CPJ (NOT FOR IM USE) IV NR (16:00)
[2021-03-02] MEDS ORDERED: NALOXONE HCL 0.4MG/ML VIAL IV PRN (16:15)
[2021-03-02] MEDS ORDERED: PARICALCITOL 5 MCG/ML 1ML IV NR (16:30)
[2021-03-02] MEDS: CEFEPIME 1,000 MG in DEXTROSE 5% WATER 50 ML IV SCH (16:38)
[2021-03-02] MEDS ORDERED: VANCOMYCIN 500 MG PREMIX 100 ML IV NR (21:00)
[2021-03-02] MEDS: EPOETIN ALFA-EPBX 10,000 UNIT/ML VIAL SUBCUT SCH (21:31)
[2021-03-02] MEDS: SODIUM BICARBONATE 150 MEQ in DEXTROSE 5% WATER 1,000 ML IV SCH (21:32)
[2021-03-03] VITALS (96 sets, daily range): BP systolic 81–147; BP diastolic 24–59
[2021-03-03] MEDS: IPRATROPIUM/ALBUTEROL 0.5-3(2.5)MG/3ML NEB HHN SCH ×4 (00:46→19:40)
[2021-03-03] MEDS: NOREPINEPHRINE 32 MG in DEXT 5% WATER 218 ML IV PRN (02:29)
[2021-03-03] MEDS: PHENYLEPHRINE 100 MG in DEXT 5% WATER 240 ML IV PRN ×4 (04:48→21:18)
[2021-03-03] MEDS: SODIUM CHLORIDE 0.9% INJ 3ML FLUSH IVF SCH ×3 (05:19→22:41)
[2021-03-03 06:01] LABS: HEMATOCRIT. 29.9 % (36.0-48.0); HEMOGLOBIN. 8.8 g/dL (12.0-16.0); MEAN CORPUSCULAR HEMOGLOBIN 27.8 pg (28.0-32.0); MEAN CORPUSCULAR VOLUME 94.9 fL (81.0-99.0); MEAN PLATELET VOLUME 10.9 fl (7.4-10.4); PLATELET 110 x1000/uL (130-400); RED BLOOD CELL COUNT 3.15 mill/uL (4.2-5.4); RED CELL DISTRIBUTION WIDTH 19.2 % (11.6-14.6)
[2021-03-03] MEDS: CINACALCET HCL 30MG TABLET PO SCH (06:18)
[2021-03-03] MEDS: BLOOD SUGAR DIAGNOSTIC STRIP TEST SCH ×4 (06:19→21:00)
[2021-03-03] MEDS: CALCIUM ACETATE 667 MG/5 ML SOLUTION NG SCH ×3 (06:19→17:48)
[2021-03-03] MEDS: INSULIN LISPRO 100 UNITS/ML SUBCUT SCH ×4 (06:42→22:48)
[2021-03-03] MEDS: FOLIC ACID/VITAMIN B COMP W-C TABLET PO SCH (08:19)
[2021-03-03] MEDS: FOLIC ACID 1MG TABLET PO SCH (08:19)
[2021-03-03] MEDS: ENOXAPARIN 120MG/0.8ML SYR SUBCUT SCH (08:19)
[2021-03-03] MEDS: MIDODRINE HCL 5MG TABLET PO SCH ×3 (08:19→17:48)
[2021-03-03] MEDS: ACETAMINOPHEN 325MG TABLET PO PRN (08:24)
[2021-03-03] MEDS ORDERED: NALOXONE HCL 0.4MG/ML VIAL IV PRN (11:30)
[2021-03-03] MEDS: HYDROCODONE/ACETAMINOPHEN 5/325MG TABLET PO PRN ×2 (12:02→18:04)
[2021-03-03] MEDS: INSULIN GLARGINE UD 100 UNITS/ML SYR SUBCUT SCH (12:03)
[2021-03-03 13:35] LABS: BG CARBOXYHEMOGLOBIN 0.6 % (0.5-1.5); BG DEOXYHEMOGLOBIN 4.1 % (0.0-5.0); BG FRACTION INSPIRED OXYGEN 28; BG HCO3 ACT 22.2 mmol/L (22.0-26.0); BG METHEMOGLOBIN 0.3 % (0.0-1.5); BG OXYGEN SATURATION 95.9 % (92.0-98.5); BG PCO2 35.6 mmHg (35.0-45.0); BG PH 7.413 (7.350-7.450); BG PO2 84.2 mmHg (75.0-100.0); BG SAMPLE SITE ALINE; BG TOTAL HEMOGLOBIN 8.8 g/dL (12.0-18.0); BG VENT MODE NASAL CANNULA
[2021-03-03 15:09] LABS: PLATELET ESTIMATE DECREASED
[2021-03-03] MEDS: CEFEPIME 1,000 MG in DEXTROSE 5% WATER 50 ML IV SCH (15:22)
[2021-03-03] MEDS: DAPTOMYCIN 800 MG in SODIUM CHLORIDE 0.9% 50 ML IV SCH (22:59)
[2021-03-04] VITALS (90 sets, daily range): BP systolic 84–153; BP diastolic 29–53
[2021-03-04] MEDS: IPRATROPIUM/ALBUTEROL 0.5-3(2.5)MG/3ML NEB HHN SCH ×4 (01:49→20:34)
[2021-03-04] MEDS: PHENYLEPHRINE 100 MG in DEXT 5% WATER 240 ML IV PRN ×3 (03:19→14:58)
[2021-03-04 04:46] LABS: HEMATOCRIT. 28.4 % (36.0-48.0); HEMOGLOBIN. 8.5 g/dL (12.0-16.0); MEAN CORPUSCULAR HEMOGLOBIN 27.8 pg (28.0-32.0); MEAN CORPUSCULAR VOLUME 93.4 fL (81.0-99.0); MEAN PLATELET VOLUME 11.8 fl (7.4-10.4); PLATELET 85 x1000/uL (130-400); RED BLOOD CELL COUNT 3.04 mill/uL (4.2-5.4); RED CELL DISTRIBUTION WIDTH 19.2 % (11.6-14.6)
[2021-03-04] MEDS: SODIUM CHLORIDE 0.9% INJ 3ML FLUSH IVF SCH ×3 (06:09→22:00)
[2021-03-04] MEDS: CINACALCET HCL 30MG TABLET PO SCH (06:11)
[2021-03-04] MEDS: CALCIUM ACETATE 667 MG/5 ML SOLUTION NG SCH ×3 (06:11→17:32)
[2021-03-04] MEDS: BLOOD SUGAR DIAGNOSTIC STRIP TEST SCH ×4 (06:29→21:00)
[2021-03-04] MEDS: INSULIN LISPRO 100 UNITS/ML SUBCUT SCH ×4 (06:49→21:00)
[2021-03-04] MEDS: MIDODRINE HCL 5MG TABLET PO SCH ×3 (08:37→17:33)
[2021-03-04] MEDS: FOLIC ACID/VITAMIN B COMP W-C TABLET PO SCH (08:37)
[2021-03-04] MEDS: HYDROCODONE/ACETAMINOPHEN 5/325MG TABLET PO PRN (08:39)
[2021-03-04] MEDS: ENOXAPARIN 120MG/0.8ML SYR SUBCUT SCH (08:39)
[2021-03-04 08:40] LABS: BG BASE EXCESS -3.4 mmol/L (-2.0-2.0); BG CARBOXYHEMOGLOBIN 1.3 % (0.5-1.5); BG DEOXYHEMOGLOBIN 8.9 % (0.0-5.0); BG FRACTION INSPIRED OXYGEN 28; BG HCO3 ACT 20.3 mmol/L (22.0-26.0); BG METHEMOGLOBIN 0.3 % (0.0-1.5); BG OXYHEMOGLOBIN 89.5 % (94.0-97.0); BG PCO2 30.9 mmHg (35.0-45.0); BG PH 7.435 (7.350-7.450); BG PO2 62.8 mmHg (75.0-100.0); BG SAMPLE SITE RIGHT RADIAL; BG TOTAL HEMOGLOBIN 8.4 g/dL (12.0-18.0); BG VENT MODE NASAL CANNULA
[2021-03-04] MEDS: FOLIC ACID 1MG TABLET PO SCH (08:40)
[2021-03-04] MEDS ORDERED: METOCLOPRAMIDE HCL 10MG/2ML VIAL IV PRN (09:00)
[2021-03-04] MEDS: INSULIN GLARGINE UD 100 UNITS/ML SYR SUBCUT SCH (09:20)
[2021-03-04 10:42] LABS: NUCLEATED RED BLOOD CELLS 4 /100 WBC
[2021-03-04 10:43] LABS: PLATELET ESTIMATE DECREASED
[2021-03-04] MEDS: HYDROCODONE/ACETAMINOPHEN 10/325MG TABLET PO PRN (12:07)
[2021-03-04] MEDS: NOREPINEPHRINE 32 MG in DEXT 5% WATER 218 ML IV PRN (14:43)
[2021-03-04] MEDS: CEFEPIME 1,000 MG in DEXTROSE 5% WATER 50 ML IV SCH (16:59)
[2021-03-05] VITALS (122 sets, daily range): BP systolic 39–138; BP diastolic -8–74
[2021-03-05] MEDS: NOREPINEPHRINE 32 MG in DEXT 5% WATER 218 ML IV PRN ×3 (02:19→17:34)
[2021-03-05] MEDS: IPRATROPIUM/ALBUTEROL 0.5-3(2.5)MG/3ML NEB HHN SCH ×4 (04:21→21:17)
[2021-03-05 06:15] LABS: HEMATOCRIT. 30.6 % (36.0-48.0); HEMOGLOBIN. 9.1 g/dL (12.0-16.0); MEAN CORPUSCULAR HEMOGLOBIN 27.3 pg (28.0-32.0); MEAN CORPUSCULAR VOLUME 92.1 fL (81.0-99.0); MEAN PLATELET VOLUME 11.6 fl (7.4-10.4); PLATELET 72 x1000/uL (130-400); RED BLOOD CELL COUNT 3.32 mill/uL (4.2-5.4); RED CELL DISTRIBUTION WIDTH 18.7 % (11.6-14.6)
[2021-03-05] MEDS: BLOOD SUGAR DIAGNOSTIC STRIP TEST SCH ×4 (06:47→21:00)
[2021-03-05] MEDS: SODIUM CHLORIDE 0.9% INJ 3ML FLUSH IVF SCH ×3 (06:47→22:35)
[2021-03-05] MEDS: INSULIN LISPRO 100 UNITS/ML SUBCUT SCH ×4 (06:47→22:33)
[2021-03-05] MEDS: CINACALCET HCL 30MG TABLET PO SCH (06:48)
[2021-03-05] MEDS: CALCIUM ACETATE 667 MG/5 ML SOLUTION NG SCH ×3 (06:48→17:29)
[2021-03-05 08:15] LABS: NUCLEATED RED BLOOD CELLS 5 /100 WBC
[2021-03-05 08:17] LABS: PLATELET ESTIMATE DECREASED
[2021-03-05] MEDS ORDERED: HEPARIN SODIUM 1,000 UNIT/1ML VIAL IV SCH (08:30)
[2021-03-05] MEDS: PHENYLEPHRINE 100 MG in DEXT 5% WATER 240 ML IV PRN ×2 (08:37→17:34)
[2021-03-05] MEDS: MIDODRINE HCL 5MG TABLET PO SCH ×2 (11:34→16:31)
[2021-03-05] MEDS: FOLIC ACID/VITAMIN B COMP W-C TABLET PO SCH (11:34)
[2021-03-05] MEDS: HYDROCODONE/ACETAMINOPHEN 10/325MG TABLET PO PRN ×2 (11:35→18:36)
[2021-03-05] MEDS: FOLIC ACID 1MG TABLET PO SCH (11:35)
[2021-03-05] MEDS: INSULIN GLARGINE UD 100 UNITS/ML SYR SUBCUT SCH (11:37)
[2021-03-05 11:39] LABS: BG BASE EXCESS -4.9 mmol/L (-2.0-2.0); BG CARBOXYHEMOGLOBIN 0.9 % (0.5-1.5); BG FRACTION INSPIRED OXYGEN 44; BG HCO3 ACT 18.8 mmol/L (22.0-26.0); BG METHEMOGLOBIN 0.1 % (0.0-1.5); BG PCO2 30.2 mmHg (35.0-45.0); BG PH 7.413 (7.350-7.450); BG PO2 92.9 mmHg (75.0-100.0); BG SAMPLE SITE ALINE; BG TOTAL HEMOGLOBIN 10.1 g/dL (12.0-18.0); BG VENT MODE NASAL CANNULA
[2021-03-05] MEDS ORDERED: ENOXAPARIN 100MG/ML SYR SUBCUT SCH (15:00)
[2021-03-05 16:11] LABS: HEMOGLOBIN. 8.9 g/dL (12.0-16.0); MEAN CORPUSCULAR HEMOGLOBIN 27.7 pg (28.0-32.0); MEAN CORPUSCULAR VOLUME 93.1 fL (81.0-99.0); MEAN PLATELET VOLUME 11.5 fl (7.4-10.4); PLATELET 57 x1000/uL (130-400); RED BLOOD CELL COUNT 3.22 mill/uL (4.2-5.4); RED CELL DISTRIBUTION WIDTH 18.5 % (11.6-14.6)
[2021-03-05 16:27] LABS: D-DIMER 16.38 mg/L FEU (<0.50); INR 1.5; PROTHROMBIN TIME 15.5 sec (9.6-11.0)
[2021-03-05] MEDS: MEROPENEM 500 MG in SODIUM CHLORIDE 0.9% 50 ML IV SCH (16:31)
[2021-03-05 17:13] LABS: NUCLEATED RED BLOOD CELLS 6 /100 WBC; PLATELET ESTIMATE DECREASED
[2021-03-05] MEDS: DAPTOMYCIN 800 MG in SODIUM CHLORIDE 0.9% 50 ML IV SCH (17:34)
[2021-03-05] MEDS: EPOETIN ALFA-EPBX 10,000 UNIT/ML VIAL SUBCUT SCH (22:34)
[2021-03-06] VITALS (92 sets, daily range): BP systolic 80–129; BP diastolic 33–55
[2021-03-06] MEDS: NOREPINEPHRINE 32 MG in DEXT 5% WATER 218 ML IV PRN ×2 (01:23→17:53)
[2021-03-06] MEDS: IPRATROPIUM/ALBUTEROL 0.5-3(2.5)MG/3ML NEB HHN SCH ×4 (02:30→21:12)
[2021-03-06] MEDS: BLOOD SUGAR DIAGNOSTIC STRIP TEST SCH ×4 (05:17→21:21)
[2021-03-06] MEDS: CINACALCET HCL 30MG TABLET PO SCH (06:10)
[2021-03-06] MEDS: SODIUM CHLORIDE 0.9% INJ 3ML FLUSH IVF SCH ×3 (06:11→21:21)
[2021-03-06] MEDS: CALCIUM ACETATE 667 MG/5 ML SOLUTION NG SCH ×3 (06:11→17:53)
[2021-03-06] MEDS: INSULIN LISPRO 100 UNITS/ML SUBCUT SCH ×4 (06:17→21:00)
[2021-03-06 08:15] LABS: CREATINE KINASE 70 IU/L (26-192)
[2021-03-06] MEDS: MIDODRINE HCL 5MG TABLET PO SCH ×3 (08:30→17:53)
[2021-03-06] MEDS: FOLIC ACID 1MG TABLET PO SCH (08:30)
[2021-03-06] MEDS: FOLIC ACID/VITAMIN B COMP W-C TABLET PO SCH (08:30)
[2021-03-06] MEDS: PHENYLEPHRINE 100 MG in DEXT 5% WATER 240 ML IV PRN ×3 (08:40→18:37)
[2021-03-06 09:19] LABS: BG BASE EXCESS -5.9 mmol/L (-2.0-2.0); BG CARBOXYHEMOGLOBIN 0.7 % (0.5-1.5); BG DEOXYHEMOGLOBIN 5.7 % (0.0-5.0); BG FRACTION INSPIRED OXYGEN 32; BG HCO3 ACT 18.1 mmol/L (22.0-26.0); BG OXYGEN SATURATION 94.3 % (92.0-98.5); BG OXYHEMOGLOBIN 93.6 % (94.0-97.0); BG PCO2 30.6 mmHg (35.0-45.0); BG PH 7.391 (7.350-7.450); BG PO2 75.1 mmHg (75.0-100.0); BG SAMPLE SITE ALINE; BG TOTAL HEMOGLOBIN 10.1 g/dL (12.0-18.0); BG VENT MODE NASAL CANNULA
[2021-03-06] MEDS: INSULIN GLARGINE UD 100 UNITS/ML SYR SUBCUT SCH (12:00)
[2021-03-06] MEDS: HYDROCODONE/ACETAMINOPHEN 10/325MG TABLET PO PRN (12:35)
[2021-03-06] MEDS: MEROPENEM 500 MG in SODIUM CHLORIDE 0.9% 50 ML IV SCH (13:38)
[2021-03-06] MEDS: EPOETIN ALFA-EPBX 10,000 UNIT/ML VIAL SUBCUT SCH (21:32)
[2021-03-07] VITALS (15 sets, daily range): BP systolic 32–137; BP diastolic 19–47
[2021-03-07] MEDS: PHENYLEPHRINE 100 MG in DEXT 5% WATER 240 ML IV PRN (00:04)
[2021-03-07] MEDS: IPRATROPIUM/ALBUTEROL 0.5-3(2.5)MG/3ML NEB HHN SCH (01:34)
[2021-03-07] MEDS ORDERED: CALCIUM CHLORIDE 1GM/10ML SYR IV ONE (05:13)
[2021-03-07] MEDS ORDERED: EPINEPHRINE 0.1MG/ML (1:10,000) 10ML SYR ONE (05:13)
[2021-03-07] MEDS ORDERED: SODIUM BICARBONATE 8.4% 1 MEQ/ML 50ML SYR IV ONE (05:13)
== END 2021-03-07 03:30 ==
LOC: ER 19:40 → EDBEDREQTM 20:47 → EDBEDREQ 22:41 → EDBEDREQSVC 22:41 → MICUSO 02-25 01:01 → EDBEDREQTM 02-25 01:06 → EDBEDREQ 02-25 01:06 → EDBEDREQDT 02-25 01:06 → EDBEDREQSVC 02-25 01:06 → ENRESERV 02-25 12:26
PROVIDERS: ADMIT Internal Medicine; ATTEND Internal Medicine
PROC: 5A1D70Z Performance of Urinary Filtration, Intermittent, Less than 6 Hours Per Day (ICD-10-PCS; principal; 2021-02-25)
PROC: 0BH17EZ Insertion of Endotracheal Airway into Trachea, Via Natural or Artificial Opening (ICD-10-PCS; 2021-02-25)
PROC: 06HY33Z Insertion of Infusion Device into Lower Vein, Percutaneous Approach (ICD-10-PCS; 2021-02-25)
PROC: B54CZZA Ultrasonography of Left Lower Extremity Veins, Guidance (ICD-10-PCS; 2021-02-25)
PROC: 5A1945Z Respiratory Ventilation, 24-96 Consecutive Hours (ICD-10-PCS; 2021-02-25)
PROC: 05H533Z Insertion of Infusion Device into Right Subclavian Vein, Percutaneous Approach (ICD-10-PCS; 2021-02-28)
PROC: B546ZZA Ultrasonography of Right Subclavian Vein, Guidance (ICD-10-PCS; 2021-02-28)
PROC: 04HY32Z Insertion of Monitoring Device into Lower Artery, Percutaneous Approach (ICD-10-PCS; 2021-03-02)
PROC: 4A133B1 Monitoring of Arterial Pressure, Peripheral, Percutaneous Approach (ICD-10-PCS; 2021-03-02)
PROC: 4A133J1 Monitoring of Arterial Pulse, Peripheral, Percutaneous Approach (ICD-10-PCS; 2021-03-02)
PROC: 5A1D70Z Performance of Urinary Filtration, Intermittent, Less than 6 Hours Per Day (ICD-10-PCS; 2021-03-05)
PROC: 5A1D70Z Performance of Urinary Filtration, Intermittent, Less than 6 Hours Per Day (ICD-10-PCS; 2021-03-07)
PROC: 5A12012 Performance of Cardiac Output, Single, Manual (ICD-10-PCS; 2021-03-07)
DX: T80.211A Bloodstream infection due to central venous catheter, initial encounter (principal); A41.81 Sepsis due to Enterococcus; I21.4 Non-ST elevation (NSTEMI) myocardial infarction; N18.6 End stage renal disease; R65.21 Severe sepsis with septic shock; E43 Unspecified severe protein-calorie malnutrition; I50.21 Acute systolic (congestive) heart failure; J96.01 Acute respiratory failure with hypoxia; J18.9 Pneumonia, unspecified organism; G92.8 Other toxic encephalopathy; I13.2 Hypertensive heart and chronic kidney disease with heart failure and with stage 5 chronic kidney disease, or end stage renal disease; Z16.21 Resistance to vancomycin; I70.261 Atherosclerosis of native arteries of extremities with gangrene, right leg; I42.9 Cardiomyopathy, unspecified; E11.52 Type 2 diabetes mellitus with diabetic peripheral angiopathy with gangrene; I47.2 Ventricular tachycardia; D68.9 Coagulation defect, unspecified; I46.9 Cardiac arrest, cause unspecified; I49.01 Ventricular fibrillation; D63.8 Anemia in other chronic diseases classified elsewhere; E66.01 Morbid (severe) obesity due to excess calories; E87.5 Hyperkalemia; I48.91 Unspecified atrial fibrillation; R56.9 Unspecified convulsions; Z20.822 Contact with and (suspected) exposure to COVID-19; E11.65 Type 2 diabetes mellitus with hyperglycemia; D69.6 Thrombocytopenia, unspecified; I25.10 Atherosclerotic heart disease of native coronary artery without angina pectoris; Y84.8 Other medical procedures as the cause of abnormal reaction of the patient, or of later complication, without mention of misadventure at the time of the procedure; M48.061 Spinal stenosis, lumbar region without neurogenic claudication; R74.01 Elevation of levels of liver transaminase levels; L89.626 Pressure-induced deep tissue damage of left heel; L89.616 Pressure-induced deep tissue damage of right heel; L89.896 Pressure-induced deep tissue damage of other site; Z68.38 Body mass index [BMI] 38.0-38.9, adult; I25.2 Old myocardial infarction; Z99.2 Dependence on renal dialysis; Z79.899 Other long term (current) drug therapy
CPT/HCPCS: 31500; 36415; 36600; 71045; 72191; 73706; 74176; 76937; 80048; 80053; 80076; 80202; 82040; 82150; 82375; 82533; 82550; 82805; 82962; 83036; 83605; 83735; 84100; 84134; 84145; 84484; 85025; 85362; 85379; 85384; 86705; 86709; 86803; 87070; 87077; 87186; 87340; 87426; 92610; 93005; 93306; 93970; 94002; 94003; 94640; 99291; A6261; C1725; C1769; J0282; J0692; J0878; J0885; J1200; J1265; J1644; J1650; J1720; J1815; J2060; J2185; J2270; J2370; J2501; J2543; J3370; J3475; J3490; J7030; J7040; J7050; J7060; J7070; P9047; Q9967